=== PATIENT | female | born 1970 | race Caucasian/White ===

== ENCOUNTER 2019-04-23 14:18 | Inpatient (IN) | payer MEDICAID ==
[~2019-04-23] VITALS: Ht 165.1 cm; Wt 108.9 kg
[2019-04-23 14:25] VITALS: BP 127/64
--- NOTE | 2019-04-23 14:40 | NUR ---
PT TAKEN TO BED 10.
--- NOTE | 2019-04-23 15:05 | NUR ---
49 Y/O F COMPLAINS OF ABDOMINAL PAIN, BLOOD IN THE STOOL SINCE 04/12/19. DENIES ANY FEVER, VOMITING. PATIENT STATES SHE HAS NAUSEA AND OCCASTIONAL DIZZINESS. SHE IS UNABLE TO SLEEP BECAUSE OF THE PAIN OR EAT, IT AKES THE PAIN WORSE. ALLERGIES TO PENECILLIN AND IBPROFEN.
--- NOTE | 2019-04-23 15:20 | NUR ---
Patient transferred to bed 9 for further care. RN re-evaluating patient at bedside.
--- NOTE | 2019-04-23 15:24 | NUR ---
Dr. Gordon is evaluating the patient at bedside.
[2019-04-23] MEDS ORDERED: NACL 0.9% 1,000 ML IV SCH (15:38)
[2019-04-23] MEDS ORDERED: MORPHINE SULFATE 4 MG/ML SYR IVP ONE ×2 (15:40→17:55)
[2019-04-23] MEDS ORDERED: ONDANSETRON 4 MG/2 ML VIAL IVP ONE (15:40)
[2019-04-23 17:01] LABS: BASOPHILS % (AUTO) 0.4 % (0.0-2.0); EOSINOPHILS # (AUTO) 0.2 K/uL (0-0.4); EOSINOPHILS % (AUTO) 2.1 % (0.0-4.0); HEMATOCRIT 34.3 % (36-48); LYMPHOCYTES # (AUTO) 2.3 K/uL (2.5-16.5); LYMPHOCYTES % (AUTO) 22.6 % (20.5-51.1); MEAN CORPUSCULAR HEMOGLOBIN 26 pg (27-31); MEAN CORPUSCULAR HGB CONC 32 g/dL (33-37); MEAN CORPUSCULAR VOLUME 79.9 fL (80-94); MONOCYTES # (AUTO) 0.7 K/uL (0.8-1.0); MONOCYTES % (AUTO) 7.1 % (1.7-9.3); NEUTROPHILS # (AUTO) 6.8 K/uL (1.8-7.7); NEUTROPHILS % (AUTO) 67.8 % (42.2-75.2); PLATELET COUNT (AUTO) 212 K/uL (140-450); RED BLOOD CELL COUNT(AUTO) 4.29 MIL/uL (4.20-5.40); RED CELL DISTRIBUTION WIDTH 13.9 % (11.6-13.7)
[2019-04-23 17:24] LABS: BILIRUBIN,URINE NEGATIVE (NEGATIVE); BLOOD, URINE NEGATIVE (NEGATIVE); COLOR,URINE YELLOW (YELLOW); LEUKOCYTE ESTERASE ,URINE TRACE (NEGATIVE); NITRITE, URINE NEGATIVE (NEGATIVE); PH,URINE 5.5 (5.0-9.0); UGLUCOSE NEGATIVE (NEGATIVE)
[2019-04-23 17:28] LABS: APPEARANCE,URINE HAZY (CLEAR)
[2019-04-23 17:28] LABS: ALBUMIN 3.2 g/dL (3.4-5.0); ANION GAP 11.8 (8-16); CARBON DIOXIDE 26.8 mmol/L (21-32); CREATININE 0.6 mg/dL (0.6-1.3); POTASSIUM 3.6 mmol/L (3.5-5.1); TOTAL BILIRUBIN 0.2 mg/dL (0.0-1.0)
[2019-04-23 17:30] LABS: PROTHROMBIN TIME 9.7 secs (10.8-13.4)
[2019-04-23 17:50] LABS: RBC,URINE NONE SEEN /HPF (0-5); WBC,URINE 0-5 /HPF (0-5)
--- NOTE | 2019-04-23 18:30 | NUR ---
PT TO CT AT THIS TIME
[2019-04-23] MEDS ORDERED: diphenhydrAMINE 50 MG/ML VIAL IVP ONE (19:25)
--- NOTE | 2019-04-23 19:38 | NUR ---
PT.'S PAIN LEVEL IS A 7/[address] PICHARDO. WILL CONTINUE TO MONITOR.
--- NOTE | 2019-04-23 19:47 | NUR ---
DR. PICHARDO AT BEDSIDE AT THIS TIME.
[2019-04-23] MEDS ORDERED: DOCUSATE SODIUM 100 MG GELCAP PO PRN (19:55)
[2019-04-23] MEDS ORDERED: ACETAMINOPHEN 325 MG TAB PO PRN (19:55)
--- NOTE | 2019-04-23 19:59 | NUR ---
XRAY AT BEDSIDE
[2019-04-23 20:10] VITALS: BP 115/59
--- NOTE | 2019-04-23 20:10 | NUR ---
RECEIVED PT FROM ED VIA HabeasBHAVYA. A A O X 4, AMBULATORY STEADY GAIT. WITH IV ON THE LEFT HAND G 22; PATENT AND INTACT, SALINE LOCK. HISTORY AND PHYSICAL; DONE BY DR. MICHEL AT BEDSIDE. PT INFORMED THAT SHE IS FOR POSSIBLE COLONOSCOPY. WILL HAVE A GI CONSULT. NURSE ASSISTED MRSA SWAB TAKEN. SKIN INTACT; WITH DISTENDED ABDOMEN; TENDER. PLACED IN LOW BED.
--- NOTE | 2019-04-23 20:14 | NUR ---
Pt report given to Jane LOVING. Transfer of care at this time.
--- NOTE | 2019-04-23 20:14 | NUR ---
Patient will be admitted to care of DR JOHNSON. Admited to [facility]. Will go to room 111B. Belongings list completed. Report to ZACH LOVING.
[2019-04-23] MEDS: NACL 0.9% 1,000 ML IV SCH (21:18)
[2019-04-23] MEDS: MORPHINE SULFATE 2 MG/ML SYR IVP PRN (21:19)
[2019-04-23] MEDS: ONDANSETRON 4 MG/2 ML VIAL IM/IVP PRN (21:20)
--- NOTE | 2019-04-23 21:22 | NUR ---
HEMOCCCULT BLOOD WAS DONE BY
[2019-04-23] MEDS ORDERED: BOWEL EVACUANT DRINK 4,000 ML PDS PO SCH (22:00)
[2019-04-23 22:18] LABS: PHOSPHORUS 2.3 mg/dL (2.5-4.9); THYROID STIMULATING HORMONE 1.94 uIU/mL (0.34-3.74)
[2019-04-23 23:17] LABS: BARBITURATE, URINE NEG. ng/ml (NEG <=200); BENZODIAZEPINE, URINE NEG. ng/mL (NEG <=200); CANNABINOID, URINE NEG. ng/mL (NEG <=50); COCAINE, URINE NEG. ng/mL (NEG <=300); PHENCYCLIDINE SCREEN,URINE NEG. ng/mL (NEG <=25)
[2019-04-23 23:27] LABS: OPIATE, URINE NEG. ng/mL (NEG <=2000)
[2019-04-23] MEDS ORDERED: SODIUM FERRIC GLUCONATE 125 MG in NACL 0.9% 100 ML IV ONE (23:50)
[2019-04-24] VITALS: BP 111/59
[2019-04-24] MEDS: MORPHINE SULFATE 2 MG/ML SYR IVP PRN ×6 (00:07→21:26)
--- NOTE | 2019-04-24 00:15 | NUR ---
MAGNESIUM [address] MICHEL THAT FERLICCIT COMING FROM PHARMACY TO BE MIZED BY THE PHARMACIST. HE SAID HE WILL ORDER TO GIVE IT IN THE AM.
--- NOTE | 2019-04-24 00:20 | NUR ---
4X MOWEL MOVEMENT SINCE DRINKING GOLYTELY. NOT YET CLEAR. PT STILL TRYING TO FINISH THE GOLYTELY
--- NOTE | 2019-04-24 02:10 | NUR ---
RE: LUIS. THE CHARGE NURSE ( PER ROLL OVER PRESS OPERATOR JUAN) ADVISE TO MIX ONE IF AVAILABLE IN THE [facility]
[2019-04-24] MEDS: ONDANSETRON 4 MG/2 ML VIAL IM/IVP PRN ×3 (02:33→18:14)
--- NOTE | 2019-04-24 03:03 | NUR ---
FERRLECIT NOT AVAILABLE IN THE HOSPITAL; CHARGE NURSE AND PRINTING ENGINEER CHECKED. WILLL FF UP WITH THE DOCTOR AND WILL ENDORSE TO NEXT SHIFT
--- NOTE | 2019-04-24 03:31 | NUR ---
REMINDED DR. MICHEL ON THE IRON (FERRLECIT) FOR IRON AT 29 TO BE ORDERED IN AM SHIFT
--- NOTE | 2019-04-24 04:42 | NUR ---
PT HAD GONE TO BM 7X STILL NOT CLEAR WITH PARTICLES; STILL HAS TO FINISH THE GOLYTELY 500 CC. WNCOURAGED PT. PT ACKNOWLEDGED AND PT SAID SHE IS SO BLOATED WILL STOP AND WILL CONTINUE LATER
--- NOTE | 2019-04-24 05:20 | NUR ---
PT C/O OF ITCHING AND PRURITUS ALL OVER BODY, INFORMED DR. MICHEL. WITH VERBAL ORDERS TO GIVE BENADRYL PO PRN FOR ITCHING/PRURITUS- NO DEFINITE TIME
--- NOTE | 2019-04-24 05:30 | NUR ---
PT HAD 9X BM, CLEAR YELLOW. PT FINISHED THE 4 LITERS OF GOLYTELY
[2019-04-24] MEDS: NACL 0.9% 1,000 ML IV SCH ×3 (05:53→23:03)
--- NOTE | 2019-04-24 06:01 | NUR ---
VERIFIED WITH PT IF THE ITCHINESS IS AN ALLERGY TO THE PAIN MED. PT SAID THAT SHE IS NOT ALLERGIC TO MORPHINE
--- NOTE | 2019-04-24 06:27 | NUR ---
LEFT A MESSAGE PHARMACY DEPT RE: FERLECIT AT 0700AM TO BE MIXED TO BE GIVEN SOON POSSIBLE
--- NOTE | 2019-04-24 06:34 | NUR ---
DR. BARRIOS CALLED UP TO INFORM THAT A COLONOSCOPY IS TO BE SCHEDULED TODAY AY 0[address]DR[address] YANG INFORMED. Addendum: 04/24/19 at 0700 by Jane Rey RN AWARE THAT THE BM IS CLEAR YELLOW, WITH JUST 2 SPECKS OF BROWN PARTICLE SEEN IN THE BM/OUTPUT
--- NOTE | 2019-04-24 06:56 | NUR ---
TALKED TO BRITNEY OF PHARMACY INFORMED HER THAT WE HAVE A 0700AM ORDER OF FERRLECIT. ACKNOWLEDGED BY PHARMACIST
[2019-04-24] MEDS ORDERED: SODIUM FERRIC GLUCONATE 125 MG in NACL 0.9% 100 ML IV SCH (07:00)
--- NOTE | 2019-04-24 07:30 | NUR ---
RECEIVED REPORT FROM ACCOUNTS PAYABLES CLERK NURSE. PT AAOX4, NO C/O PAIN. RESPIRATIONS EVEN AND UNLABORED ON RA. IV ON LT AC 20 GA RUNNING IVF PER ORDER. ABD SOFT, ACTIVE BS. SKIN IS INTACT, WARM TO TOUCH. SAFETY MEASURES IN PLACE, CALL LIGHT WITHIN REACH. REVIEWED POC WITH PT, PT VERBALIZED UNDERSTANDING, WILL NEED REINFORCEMENT.
[2019-04-24] MEDS ORDERED: MIDAZOLAM 2 MG/2 ML VIAL ONE (07:33)
[2019-04-24] MEDS ORDERED: diphenhydrAMINE 50 MG/ML VIAL ONE (07:34)
[2019-04-24] MEDS: SODIUM FERRIC GLUCONATE 125 MG in NACL 0.9% 100 ML IV SCH ×2 (07:42→08:25)
--- NOTE | 2019-04-24 07:45 | NUR ---
PT TAKEN FOR COLONOSCOPY. PT HAS NO SIGNS OF DISTRESS AT THIS TIME.
[2019-04-24] MEDS: fentaNYL 0.05 MG/ML VIAL ONE ×2 (07:50→08:02)
[2019-04-24] MEDS: MIDAZOLAM 2 MG/2 ML VIAL IVP SCH ×2 (08:01→08:30)
[2019-04-24 08:04] LABS: BASOPHILS % (AUTO) 0.5 % (0.0-2.0); EOSINOPHILS # (AUTO) 0.3 K/uL (0-0.4); EOSINOPHILS % (AUTO) 3.1 % (0.0-4.0); HEMOGLOBIN 9.8 g/dL (12.0-16.0); LYMPHOCYTES % (AUTO) 22.9 % (20.5-51.1); MEAN CORPUSCULAR HEMOGLOBIN 26 pg (27-31); MEAN CORPUSCULAR HGB CONC 33 g/dL (33-37); MEAN CORPUSCULAR VOLUME 79.6 fL (80-94); MONOCYTES # (AUTO) 0.6 K/uL (0.8-1.0); MONOCYTES % (AUTO) 7.2 % (1.7-9.3); NEUTROPHILS # (AUTO) 5.7 K/uL (1.8-7.7); NEUTROPHILS % (AUTO) 66.3 % (42.2-75.2); PLATELET COUNT (AUTO) 195 K/uL (140-450); RED BLOOD CELL COUNT(AUTO) 3.76 MIL/uL (4.20-5.40); RED CELL DISTRIBUTION WIDTH 13.7 % (11.6-13.7); WHITE BLOOD COUNT (AUTO) 8.7 K/uL (4.8-10.8)
[2019-04-24 08:14] LABS: ANION GAP 12.3 (8-16); CARBON DIOXIDE 27.6 mmol/L (21-32); CREATININE 0.7 mg/dL (0.6-1.3); POTASSIUM 3.9 mmol/L (3.5-5.1)
[2019-04-24] MEDS ORDERED: fentaNYL 0.1 MG/HR PATCH TD SCH (08:15)
[2019-04-24 08:26] LABS: MAGNESIUM 1.9 mg/dL (1.8-2.4); PHOSPHORUS 2.7 mg/dL (2.5-4.9)
[2019-04-24 08:30] VITALS: BP 95/41
--- NOTE | 2019-04-24 08:30 | NUR ---
PT RETURNED FROM PROCEDURE. BLOOD PRESSURE IS DECREASED 95/41, HR 61. PT HAS NO S/S OF HYPOTENSION. PT IS AWARE TO NOTIFY NURSE WHEN GETTING UP TO GO TO RESTROOM. NOTIFIED DR. VELAZQUEZ REGARDING PT'S LOW BP, NO NEW ORDERS RECEIVED, WILL CONTINUE TO MONITOR.
--- NOTE | 2019-04-24 08:32 | NUR ---
PATIENT HAS BEEN SCREENED AND CATEGORIZED HIGH NUTRITION RISK. PATIENT WILL BE SEEN WITHIN 1-2 DAYS OF ADMISSION. 04/24/19-04/25/[address]
[2019-04-24 09:06] LABS: CHOL/HDL RATIO 5.9 (1-4.5)
[2019-04-24] MEDS ORDERED: fentaNYL 0.05 MG/ML VIAL IVP ONE (09:45)
[2019-04-24] MEDS ORDERED: fentaNYL 0.05 MG/ML VIAL IVP SCH (10:00)
--- NOTE | 2019-04-24 10:00 | NUR ---
ADMINISTERED MORPHINE FOR LEVEL 8/10 BACK PAIN, WILL REASSESS WITHIN 1 HOUR.
[2019-04-24] MEDS: HYDROcodone/APAP 7.5/325 MG 1 TAB PO PRN ×3 (11:42→23:20)
--- NOTE | 2019-04-24 11:42 | NUR ---
ADMINISTERED NORCO FOR LEVEL 6/10 ABDOMINAL PAIN. WILL REASSESS WITHIN 1 HOUR.
--- NOTE | 2019-04-24 12:45 | NUR ---
STARTED IV TO LT HAND 22 GA, FLUSHING WITH NO RESISTANCE, CONTINUED IVF PER ORDER.
--- NOTE | 2019-04-24 12:49 | NUR ---
04/24/19 RD INITIAL ASSESSMENT COMPLETED PLEASE REFER TO NUTRITION ASSESSMENT UNDER CARE ACTIVITY FOR ESTIMATED NUTRITIONAL NEEDS. 1. CONTINUE CLEAR LIQUID DIET TOLERATED 2. RECOMMEND ENSURE CLEAR TID 3. CONSIDER ADVANCING DIET TO FULL LIQUIDS AND THEN REGULAR WHEN MEDICALLY STABLE 4. PROVIDED NUTRITION EDUCATION FOR MALNUTRITION/INCREASING CALORIE INTAKE 5. RD TO FOLLOW-UP 2-3 DAYS, HIGH RISK ABDIRAHMAN CAMPBELL, RD
[2019-04-24] MEDS ORDERED: MORPHINE SULFATE 2 MG/ML SYR IVP SCH (13:05)
--- NOTE | 2019-04-24 14:16 | NUR ---
DC PLANNING 49 YRS OLD FEMALE ADMITTED FROM HOME WITH A DX OF RECTAL BLEEDING . ALERT AND ORIENTED X 4 , LIVES AT HOME WITH FAMILY ,PERFORM ADL'S INDEPENDENTLY. PT HAS A HX OF COLON CA. CT ABD/PELVIS ORDERED GI CONSULT ,COLONOSCOPY ORDERED BY DR DRAPER. DC PLAN TO GO HOME WHEN STABLE.CM TO FOLLOW
--- NOTE | 2019-04-24 15:07 | NUR ---
PER NANCY THOMPSON TO GIVE MORPHINE AT THIS TIME FOR LEVEL 8/10 ABDOMINAL PAIN, WILL REASSESS WITHIN 1 HOUR.
[2019-04-24 16:00] VITALS: BP 113/58
--- NOTE | 2019-04-24 16:09 | NUR ---
Manager Disaster Recovery Assessment/Discharge Plan: Name: Felipe Dc Home Relationship: son Pre-Admission Living Arrangements: Lives with Other Other: three sons, including Felipe Prior ADL Independent Current Home Health Name/Tel: N/A Current DME/02 Name/Tel: no home O2 Current Hospice Name/Tel: N/A Current Dialysis Name/Tel: N/A Healthcare Decision Maker: Patient Advance Directive No Information Taught: Advance Directive Person Taught: Children Patient Teaching Tools: Computer Generated Print Verbal Factors Affecting Learning: None Participation Level: Active Evaluation: Gestures Understanding Verbalizes Understanding Educator: KAE Shaver Discipline: Case Mgt/Social Svcs Tentative Discharge Plan Summary: Patient is a 49 year old female with family history of colon cancer admitted for rectal bleed. I met with patient and patient's son Felipe Dc at bedside. Patient alert and oriented x4. Patient speaks Vietnamese. Felipe speaks Luxembourgish and Vietnamese. Patient lives at home with her three sons, including Felipe and plans to return home upon discharge. Patient does not have a pcp at this time. I emphasized to patient the importance of following up with a physician post discharge and regularly. She verbalized understanding. I provided patient with a list of low cost clincs. Patient is independent with ADLs and does not use any DME at home. Patient does not have an existing Advance Directive. I provided patient and Felipe with education on Advance Directive and provided patient with a blank form. Patient denied hx of mental health. She also denied alcohol/substance abuse. Patient has had good communication with attending MD, resident MD, and nursing staff. She does not have any questions/concerns at this time. Manager Disaster Recovery and/or Instrumentation Engineer will follow up as needed. Signature: KAE Shaver Date: Apr 24, 2019
--- NOTE | 2019-04-24 17:28 | NUR ---
NOTIFIED CT DEPARTMENT THAT CONSENT WAS OBTAINED FROM PATIENT AND IV ON RT FA 20 GA WAS STARTED. WILL CONTINUE TO FOLLOW-UP.
[2019-04-24] MEDS ORDERED: APAP/BUTAL/CAFF 325/50/40 MG 1 TAB PO PRN (17:50)
--- NOTE | 2019-04-24 18:14 | NUR ---
ARABELLA FROM CT AT BEDSIDE GIVING INSTRUCTIONS TO PT AND SON REGARDING PO CONTRAST AND TO AMBULATE TO INCREASE EFFECTIVITY. PT AND SON VERBALIZED UNDERSTANDING.
--- NOTE | 2019-04-24 18:45 | NUR ---
PT AMBULATING IN HALLWAY WITH STEADY GAIT. PT HAS NO S/S OF DISTRESS AT THIS TIME.
--- NOTE | 2019-04-24 19:25 | NUR ---
ENDORSED PT TO PUBLIC HEALTH PROGRAM MANAGER NURSE KULWANT. PT HAS NO SIGNS OF DISTRESS AT THIS TIME.
--- NOTE | 2019-04-24 19:26 | NUR ---
RECEIVED BEDSIDE REPORT FROM AM SHIFT NURSE. PT IS LYING IN BED AWAKE AND ALERT WITH FAMILY AT BEDSIDE. NO SOB OR DISTRESS NOTED. IV ACCESS NOTED ON RIGHT FA 20 GAUGE AND LEFT HAND [address] SCAN CONTRAST AT THIS TIME. PATENT AND INFUSING WELL. BOARD UPDATED. INITIAL ASSESSMENT DONE. CALL LIGHT WITHIN PATIENT REACH.
--- NOTE | 2019-04-24 22:25 | NUR ---
CT/RADIOLOGY CAME TO GET GET PATIENT AT THIS TIME FOR CT SCAN WITH CONTRAST. NO SOB OR DISTRESS NOTED.
--- NOTE | 2019-04-24 22:40 | NUR ---
PATIENT AND FAMILY SEEN BY DR. ALCAZAR AT THIS TIME.
--- NOTE | 2019-04-24 22:45 | NUR ---
PT RETURN BACK TO UNIT VIA WHEELCHAIR AT THIS TIME FROM CT SCAN WITH CONTRAST. NO DISTRESS NOTED.
[2019-04-24] MEDS ORDERED: LORazepam 1 MG TAB PO SCH (23:30)
--- NOTE | 2019-04-25 | NUR ---
VITALS TAKEN AT THIS TIME. NO DISTRESS NOTED. WILL CONTINUE TO MONITOR PATIENT.
[2019-04-25 00:05] VITALS: BP 108/75
--- NOTE | 2019-04-25 02:30 | NUR ---
ROUNDS DONE. PT RESTING WITH EYES CLOSED. VISIBLE CHEST RISE AND FALL NOTED. WILL CONTINUE TO MONITOR PT.
[2019-04-25] MEDS: HYDROcodone/APAP 7.5/325 MG 1 TAB PO PRN ×2 (05:55→09:06)
[2019-04-25] MEDS: ONDANSETRON 4 MG/2 ML VIAL IM/IVP PRN (05:57)
--- NOTE | 2019-04-25 05:57 | NUR ---
PRN ZOFRAN GIVEN FOR NAUSEA AT THIS TIME.
[2019-04-25] MEDS: MORPHINE SULFATE 2 MG/ML SYR IVP PRN (06:16)
[2019-04-25 06:18] LABS: BASOPHILS % (AUTO) 0.5 % (0.0-2.0); EOSINOPHILS # (AUTO) 0.2 K/uL (0-0.4); EOSINOPHILS % (AUTO) 3.3 % (0.0-4.0); HEMATOCRIT 26.8 % (36-48); HEMOGLOBIN 8.7 g/dL (12.0-16.0); LYMPHOCYTES # (AUTO) 1.5 K/uL (2.5-16.5); LYMPHOCYTES % (AUTO) 21.1 % (20.5-51.1); MEAN CORPUSCULAR HEMOGLOBIN 26 pg (27-31); MEAN CORPUSCULAR HGB CONC 32 g/dL (33-37); MEAN CORPUSCULAR VOLUME 80.2 fL (80-94); MONOCYTES # (AUTO) 0.5 K/uL (0.8-1.0); MONOCYTES % (AUTO) 6.9 % (1.7-9.3); NEUTROPHILS # (AUTO) 4.9 K/uL (1.8-7.7); NEUTROPHILS % (AUTO) 68.2 % (42.2-75.2); PLATELET COUNT (AUTO) 167 K/uL (140-450); RED BLOOD CELL COUNT(AUTO) 3.34 MIL/uL (4.20-5.40); RED CELL DISTRIBUTION WIDTH 13.4 % (11.6-13.7); WHITE BLOOD COUNT (AUTO) 7.1 K/uL (4.8-10.8)
[2019-04-25 06:34] LABS: MAGNESIUM 1.9 mg/dL (1.8-2.4); PHOSPHORUS 3.2 mg/dL (2.5-4.9)
[2019-04-25 06:47] LABS: ANION GAP 11.8 (8-16); CARBON DIOXIDE 25.9 mmol/L (21-32); CREATININE 0.6 mg/dL (0.6-1.3); POTASSIUM 3.7 mmol/L (3.5-5.1)
--- NOTE | 2019-04-25 06:57 | NUR ---
PT IN STABLE CONDITION. CALL LIGHT WITHIN PATIENT REACH. WILL ENDORSE TO AM SHIFT NURSE FOR CONTINUITY OF CARE.
--- NOTE | 2019-04-25 07:05 | NUR ---
RECEIVED REPORT FROM NIGHT RN. PATIENT IS FULL CODE, ALLERGIES TO IBUPROFEN AND PENICILLIN. PATIENT IS AAOX4, AMBULATORY, ROOM AIR. PT HAS AN IV TO L AC 20G WITH NS INFUSING AT 100ML/HR. CURRENTLY AWAKE AND IN BED, NO COMPLAINTS. SKIN IS INTACT. HAS PLACED DISCHARGE ORDER FOR TODAY, WILL F/U
[2019-04-25 08:00] VITALS: BP 128/59
[2019-04-25 08:10] LABS: FOLIC ACID 5.8 ng/mL (>3.0)
--- NOTE | 2019-04-25 08:30 | NUR ---
REMOVED PATIENTS IV LINE D/T INFILTRATION, CANNULA INTACT
[2019-04-25] MEDS ORDERED: ASCORBIC ACID 500 MG TAB PO SCH (09:00)
[2019-04-25] MEDS ORDERED: FERROUS GLUCONATE 324 MG TAB PO SCH ×2 (09:00)
--- NOTE | 2019-04-25 09:10 | NUR ---
ADMINISTERED MORNING MEDICATION AND NORCO FOR PAIN. PATIENT STATED TO FEELING ANXIOUS OVER DIAGNOSIS AND WANTED SOMETHING FOR ANXIETY. INFORMED DR MALDONADO AND WAS TOLD HE WOULD PUT IN AN ORDER FOR ANXIETY MEDICATION AND HE WOULD BE COMING TO SPEAK TO PATIENT.
--- NOTE | 2019-04-25 10:56 | NUR ---
GAVE PATIENT ONE TIME DOSE OF LEXAPRO FOR ANXIETY AND NORCO 10/325 FOR PAIN.
[2019-04-25] MEDS: HYDROcodone/APAP 10/325 MG 1 TAB TAB PO PRN ×2 (10:57→14:51)
[2019-04-25] MEDS ORDERED: FAMOTIDINE 20 MG TAB PO SCH ×2 (11:00→21:00)
[2019-04-25] MEDS ORDERED: ESCITALOPRAM 20 MG TAB PO SCH (11:00)
[2019-04-25] MEDS ORDERED: ESCI20TA47 PO (11:50)
[2019-04-25] MEDS ORDERED: VITC500 PO (11:50)
[2019-04-25] MEDS ORDERED: NORC10 PO (11:50)
[2019-04-25] MEDS ORDERED: FERR324T11 PO (11:50)
[2019-04-25] MEDS ORDERED: FAMO20TA13 PO (11:50)
--- NOTE | 2019-04-25 12:59 | NUR ---
PATIENT C/O OF FEELING ANXIOUS AND SOB. PLACED HER ON NASAL CANNULA 2L. VITAL SIGNS BP 111/56, O2 94%
[2019-04-25] MEDS ORDERED: DOCU-299 PO (13:01)
[2019-04-25] MEDS ORDERED: FIO PO (13:40)
--- NOTE | 2019-04-25 14:57 | NUR ---
ADMINISTERED MEDICATION FOR PAIN. WILL RE ASSESS.
[2019-04-25 15:14] LABS: ALBUMIN 2.8 g/dL (3.4-5.0); CARBON DIOXIDE 28.7 mmol/L (21-32); CREATININE 0.6 mg/dL (0.6-1.3); POTASSIUM 3.7 mmol/L (3.5-5.1); TOTAL BILIRUBIN 0.2 mg/dL (0.0-1.0)
--- NOTE | 2019-04-25 16:10 | NUR ---
PATIENT HAS BEEN DISCHARGED OFF THE UNIT TO HOME WITH FAMILY. NO IV LINE IN AT TIME OF DISCHARGE. PAPERWORK SIGNED AND GIVEN TO PATIENT. RX PRESCRIPTIONS GIVEN TO PATIENTS FAMILY MEMBER. ALL BELONGINGS SENT HOME WITH PATIENT.
[2019-04-26] MEDS ORDERED: ESCITALOPRAM 20 MG TAB PO SCH (09:00)
== END 2019-04-25 16:11 | disposition home or self-care (01) | DRG 253 ==
LOC: MED 14:18 → MTU 19:55
PROVIDERS: ADMIT General Practice; ATTEND General Practice
PROC: 0DBN8ZX Excision of Sigmoid Colon, Via Natural or Artificial Opening Endoscopic, Diagnostic (ICD-10-PCS; 2019-04-24)
PROC: 0DBP8ZX Excision of Rectum, Via Natural or Artificial Opening Endoscopic, Diagnostic (ICD-10-PCS; 2019-04-24)
PROC: 0DBM8ZX Excision of Descending Colon, Via Natural or Artificial Opening Endoscopic, Diagnostic (ICD-10-PCS; principal; 2019-04-24 08:00)
PROC: 0DBL8ZX Excision of Transverse Colon, Via Natural or Artificial Opening Endoscopic, Diagnostic (ICD-10-PCS; 2019-04-24 08:00)
DX: K92.2 Gastrointestinal hemorrhage, unspecified (principal); C18.9 Malignant neoplasm of colon, unspecified; E44.0 Moderate protein-calorie malnutrition; K76.0 Fatty (change of) liver, not elsewhere classified; E66.01 Morbid (severe) obesity due to excess calories; D63.8 Anemia in other chronic diseases classified elsewhere; D64.9 Anemia, unspecified; N83.202 Unspecified ovarian cyst, left side; K42.9 Umbilical hernia without obstruction or gangrene; N83.201 Unspecified ovarian cyst, right side; Z68.39 Body mass index [BMI] 39.0-39.9, adult; Z80.0 Family history of malignant neoplasm of digestive organs; Z80.3 Family history of malignant neoplasm of breast; Z88.0 Allergy status to penicillin; Z88.8 Allergy status to other drugs, medicaments and biological substances; Z90.49 Acquired absence of other specified parts of digestive tract
CPT/HCPCS: 36415; 45381; 71045; 76770; 76856; 80048; 80053; 80305; 81001; 82378; 82607; 82746; 83036; 83540; 83735; 84100; 84443; 84484; 85025; 85045; 85610; 85730; 86886; 86900; 86901; 87081; 87086; 88305; 93005; 96361; 96374; 96375; 96376; 99285; J1200; J2250; J2270; J2405; J2916; J3010; J7030; Q0092; Q0163; Q9967

== ENCOUNTER 2019-05-14 06:35 | Inpatient (IN) | payer MEDICAID ==
[2019-05-13 12:00] LABS: BASOPHILS % (AUTO) 0.6 % (0.0-2.0); EOSINOPHILS # (AUTO) 0.2 K/uL (0-0.4); HEMATOCRIT 36.4 % (36-48); HEMOGLOBIN 11.3 g/dL (12.0-16.0); LYMPHOCYTES # (AUTO) 1.8 K/uL (2.5-16.5); LYMPHOCYTES % (AUTO) 23.8 % (20.5-51.1); MEAN CORPUSCULAR HEMOGLOBIN 25 pg (27-31); MEAN CORPUSCULAR HGB CONC 31 g/dL (33-37); MEAN CORPUSCULAR VOLUME 81.8 fL (80-94); MONOCYTES # (AUTO) 0.5 K/uL (0.8-1.0); MONOCYTES % (AUTO) 7.1 % (1.7-9.3); NEUTROPHILS % (AUTO) 65.5 % (42.2-75.2); PLATELET COUNT (AUTO) 242 K/uL (140-450); RED BLOOD CELL COUNT(AUTO) 4.45 MIL/uL (4.20-5.40); RED CELL DISTRIBUTION WIDTH 15.1 % (11.6-13.7); WHITE BLOOD COUNT (AUTO) 7.6 K/uL (4.8-10.8)
[2019-05-13 12:46] LABS: ALBUMIN 3.6 g/dL (3.4-5.0); ANION GAP 11.8 (8-16); CARBON DIOXIDE 29.7 mmol/L (21-32); CREATININE 0.7 mg/dL (0.6-1.3); POTASSIUM 4.5 mmol/L (3.5-5.1); TOTAL BILIRUBIN 0.4 mg/dL (0.0-1.0)
[~2019-05-14] VITALS: Ht 165.1 cm; Wt 104.3 kg
[~2019-05-14 06:35] MED LIST: DOCU-299 PO; ESCI20TA47 PO; FAMO20TA13 PO; FERR324T11 PO; FIO PO; NORC10 PO; VITC500 PO
[2019-05-14] MEDS ORDERED: GABAPENTIN 300 MG CAP PO ONE (07:00)
[2019-05-14] MEDS ORDERED: IBUPROFEN 400 MG TAB PO ONE (07:00)
[2019-05-14] MEDS ORDERED: ACETAMINOPHEN EXTRA STRENGTH 500 MG TAB PO ONE (07:00)
[2019-05-14] MEDS ORDERED: metroNIDAZOLE 500 MG/NS PREMIX 100 ML IV ONE (07:30)
[2019-05-14] MEDS ORDERED: DEXAMETHASONE 4 MG/ML VIAL ONE (07:40)
[2019-05-14] MEDS ORDERED: SUCCINYLCHOLINE CHLORIDE 200 MG/10 ML VIAL IVP ONE (07:40)
[2019-05-14] MEDS ORDERED: SEVOFLURANE 250 ML BTL INH ONE (07:40)
[2019-05-14] MEDS ORDERED: PROPOFOL 200 MG/20 ML VIAL IV ONE (07:40)
[2019-05-14] MEDS ORDERED: ONDANSETRON 4 MG/2 ML VIAL ONE (07:40)
[2019-05-14] MEDS ORDERED: ROCURONIUM 50 MG/5 ML VIAL IV ONE (07:40)
[2019-05-14] MEDS ORDERED: MIDAZOLAM 2 MG/2 ML VIAL ONE (07:53)
[2019-05-14] MEDS ORDERED: fentaNYL 0.05 MG/ML VIAL ONE (07:53)
[2019-05-14] MEDS ORDERED: MEPERIDINE 50 MG/ML SYR ONE (07:54)
[2019-05-14] MEDS ORDERED: LIDOCAINE 1% 500 MG/50 ML VIAL ONE (08:00)
[2019-05-14] MEDS ORDERED: BUPIVACAINE-MPF/EPI 0.25% 30 ML VIAL INJ ONE (08:00)
[2019-05-14] MEDS ORDERED: BUPIVACAINE-MPF 0.25% 30 ML VIAL INJ ONE (08:01)
[2019-05-14] MEDS ORDERED: LIDOCAINE/EPI MPF 1%1:200000 30 ML VIAL INJ ONE (08:01)
[2019-05-14] MEDS ORDERED: HYDROmorphone 1 MG/ML AMP IVP PRN ×2 (09:00→11:35)
[2019-05-14] MEDS ORDERED: diphenhydrAMINE 50 MG/ML VIAL IVP PRN (09:00)
[2019-05-14] MEDS ORDERED: LACTATED RINGERS 1,000 ML IV SCH (09:00)
[2019-05-14] MEDS ORDERED: MEPERIDINE 25 MG/ML SYR IVP PRN (09:10)
[2019-05-14] MEDS ORDERED: ONDANSETRON 4 MG/2 ML VIAL IVP PRN (09:10)
[2019-05-14] MEDS ORDERED: HYDROmorphone PFS 2 MG/ML SYR ONE (11:26)
[2019-05-14] MEDS: HYDROmorphone PFS 2 MG/ML SYR ONE ×2 (11:47→12:06)
[2019-05-14] MEDS ORDERED: PROMETHAZINE 25 MG/ML VIAL IM PRN (11:50)
[2019-05-14 12:30] VITALS: BP 116/60
--- NOTE | 2019-05-14 12:30 | NUR ---
PT ADMITTED FROM OR S/P LAPARASCOPIC HEMICHOLECTOMY. ABDOMINAL SURGICAL WOUND PRESENT OPEN TO AIR, NO DRAINAGE. PT REPORTS PAIN OF 10, WILL MEDICATE. RESPIRATIONS EVEN AND UNLABORED ON ROOM AIR. IV IN PLACE L HAND 20G INFUSING PER ORDER, PATENT ASYMPTOMATIC. AAOX4. BED IN LOW POSITION. SAFETY MEASURES IN PLACE. CALL LIGHT WITHIN REACH. WILL CONTINUE TO MONITOR.
[2019-05-14] MEDS: GABAPENTIN 300 MG CAP PO SCH ×2 (13:33→21:13)
[2019-05-14] MEDS: metroNIDAZOLE 500 MG/NS PREMIX 100 ML IV SCH ×2 (13:33→21:12)
[2019-05-14] MEDS ORDERED: traMADol 50 MG TAB PO PRN (15:30)
--- NOTE | 2019-05-14 15:41 | NUR ---
VITAL SIGNS TAKEN AT THIS TIME. PT IN STABLE CONDITION. REPORTS PAIN OF 10. WILL MEDICATE. SAFETY MEASURES IN PLACE. WILL CONTINUE TO MONITOR.
[2019-05-14 16:00] VITALS: BP 139/73
[2019-05-14] MEDS: ACETAMINOPHEN 325 MG TAB PO SCH ×2 (16:04→21:12)
[2019-05-14] MEDS: HYDROcodone/APAP 5/325 MG 1 TAB TAB PO PRN (16:15)
--- NOTE | 2019-05-14 17:39 | NUR ---
PT IN BED, AWAKE. STILL REPORTS PAIN. PAIN MEDICATION GIVE. WILL REEVALUATE. DAUGHTER AT THE BEDSIDE. WILL CONTINUE TO MONITOR.
--- NOTE | 2019-05-14 19:13 | NUR ---
REPORT GIVEN TO NIGHT NURSE FOR CONTINUITY OF CARE.
--- NOTE | 2019-05-14 19:30 | NUR ---
RECEIVED FROM AM RN IN BED AWAKE AND ALERT. DAUGHTER AT BEDSIDE ATTENDING TO HER. ABLE TO VERBALIZE NEEDS WELL VIA DAUGHTER. CARE PLANS FOR THE NIGHT DISCUSSED WITH THEM AND CALL LIGHT USE RE-ORIENTED WITH THEM. ENCOURAGED TO CALL FOR ANY HELP THEY MAY NEED. INCISION SITES NO BLEEDING NOTED . AFEBRILE.
[2019-05-14 20:00] VITALS: BP 129/69
--- NOTE | 2019-05-14 21:28 | NUR ---
PT. AWAKE AND WITH DAUGHTER AT BEDSIDE. C/O MILD PAIN AT THIS TIME. MEDICATED WITH TRAMADOL REQUESTED. ABLE TO VERBALIZE NEEDS WELL WITH DAUGHTER AND IN TURN INTERPRETED IN WELSH. NO FURTHER COMPLAINTS DONE. NO NOTED ADVERSE REACTIONS TO FLAGYL ADMINISTERED.
[2019-05-14] MEDS ORDERED: ceFAZolin 1,000 MG VIAL ONE (22:35)
[2019-05-14] MEDS ORDERED: HYDROmorphone 1 MG/ML AMP ONE (22:50)
--- NOTE | 2019-05-14 23:03 | NUR ---
PT. DAUGHTER REQUESTED FOR MORE PAIN RELIEVER AND THAT IF WE CAN GIVE SOMETHING FOR PAIN. TRIED TO GIVE NORCO P.O. REFUSED WHEN ABOUT TO BE ADMINISTERED. PT. STATED SHE WANTS MORE IVP PAIN RELIEVER. CALLED Theodora HEBERT AND WITH NEW ORDERS TO ADMINISTER DILAUDID 1 MG Q 2H FOR SEVERE PAIN. MEDICATED ORDERED. PT. NOW TRYING TO RELAX AND GO TO SLEEP. DAUGHTER AT BEDSIDE. CALL LIGHT WITH IN REACH.
[2019-05-15] VITALS: BP 134/70
--- NOTE | 2019-05-15 00:54 | NUR ---
HOLLY. NICOLE RETURNED WITNESSED BY ANOTHER RN.
[2019-05-15 02:21] VITALS: BP 129/65
[2019-05-15] MEDS: HYDROmorphone 1 MG/ML AMP IVP PRN ×8 (02:29→21:00)
[2019-05-15] MEDS: ONDANSETRON 4 MG/2 ML VIAL IVP PRN ×2 (02:35→10:19)
--- NOTE | 2019-05-15 02:39 | NUR ---
PT. MEDICATED WITH DILAUDID 1 MG IVP REQUESTED RT SHE SAID HER PAIN IS 7/10. DAUGHTER AT BEDSIDE WATCHING OVER HER. ABLE TO VERBALIZE NEEDS IN LAO AND SWAZI. CALL LIGHT WITH IN REACH.
[2019-05-15 04:03] VITALS: BP 126/64
[2019-05-15] MEDS: metroNIDAZOLE 500 MG/NS PREMIX 100 ML IV SCH (05:00)
[2019-05-15] MEDS: GABAPENTIN 300 MG CAP PO SCH ×3 (05:02→21:01)
[2019-05-15] MEDS ORDERED: ceFAZolin 1,000 MG VIAL ONE (05:44)
--- NOTE | 2019-05-15 05:45 | NUR ---
ANCEF 2GMS IVP ADMINISTERED ORDERED. PT. ABLE TO USE CALL LIGHT FOR HELP. MEDICATED WITH DILAUDID 1MG IVP Q2H. DAUGHTER AT BEDSIDE.
--- NOTE | 2019-05-15 06:09 | NUR ---
MD. BRAMBILA IN HERE TO SEE PT. NOTED THAT PT. SLEEPS AFTER EACH PAIN RELIEVER ADMINISTERED. IF AWAKE COMPLAINS OF PAIN BUT SLEEPS BACK AGAIN IF NOT YET TIME EXPLAINED. DAUGHTER AGREE.
[2019-05-15 06:51] LABS: BASOPHILS % (AUTO) 0.3 % (0.0-2.0); EOSINOPHILS % (AUTO) 0.5 % (0.0-4.0); HEMATOCRIT 30.9 % (36-48); HEMOGLOBIN 9.9 g/dL (12.0-16.0); LYMPHOCYTES # (AUTO) 1.5 K/uL (2.5-16.5); LYMPHOCYTES % (AUTO) 16.2 % (20.5-51.1); MEAN CORPUSCULAR HEMOGLOBIN 26 pg (27-31); MEAN CORPUSCULAR HGB CONC 32 g/dL (33-37); MEAN CORPUSCULAR VOLUME 82.1 fL (80-94); MONOCYTES # (AUTO) 0.8 K/uL (0.8-1.0); MONOCYTES % (AUTO) 8.6 % (1.7-9.3); NEUTROPHILS # (AUTO) 6.9 K/uL (1.8-7.7); NEUTROPHILS % (AUTO) 74.4 % (42.2-75.2); PLATELET COUNT (AUTO) 204 K/uL (140-450); RED BLOOD CELL COUNT(AUTO) 3.76 MIL/uL (4.20-5.40); RED CELL DISTRIBUTION WIDTH 15.9 % (11.6-13.7); WHITE BLOOD COUNT (AUTO) 9.3 K/uL (4.8-10.8)
[2019-05-15] MEDS: ACETAMINOPHEN 325 MG TAB PO SCH ×4 (07:20→21:01)
--- NOTE | 2019-05-15 07:20 | NUR ---
WILL ENDORSE TO AM RN FOR CONTINUITY OF CARE.
[2019-05-15 07:30] LABS: ANION GAP 12.3 (8-16); CREATININE 0.7 mg/dL (0.6-1.3); POTASSIUM 4.3 mmol/L (3.5-5.1)
[2019-05-15 08:00] VITALS: BP 116/68
--- NOTE | 2019-05-15 08:01 | NUR ---
PATIENT HAS BEEN SCREENED AND CATEGORIZED MODERATE NUTRITION RISK. PATIENT WILL BE SEEN WITHIN 3-5 DAYS OF ADMISSION. 05/17/19 05/19/[address]
[2019-05-15] MEDS: ENOXAPARIN 40 MG/0.4 ML SYR SUBQ SCH (09:11)
--- NOTE | 2019-05-15 09:19 | NUR ---
cleaned and kept dry,ambulated to the bathroom and voided freely. ambulating ronny the room.tolerating well with daughter at bedside
--- NOTE | 2019-05-15 10:59 | NUR ---
BACK TO BED AFTER AMBULATING AND HAS SEVERE INCISIONAL PAIN. AND NAUSEA NO VOMITING. DILAUDID DOSE GIVEN FOR PAIN AND ZOFRAN DOSE FOR NAUSEA. WITH THE SAME IVF ON.
[2019-05-15 12:00] VITALS: BP 124/62
--- NOTE | 2019-05-15 14:18 | NUR ---
PATIENMT HAS RESIDUAL PAIN INCISIONAL PAIN. ENCOURAGED TO COUGH AND DEEP BREATH
[2019-05-15] MEDS: HYDROcodone/APAP 5/325 MG 1 TAB TAB PO PRN (17:25)
--- NOTE | 2019-05-15 17:26 | NUR ---
TYLENOL NOT GIVEN.NORCO GIVEN INSTEAD.WITH INSTRUCTION FROM THE PHYSICIAN TO GIVEN NORCO FISRT BEFORE DIALUDID.
--- NOTE | 2019-05-15 18:35 | NUR ---
NORCO DOSE IS NOT EFFECTIVE. PATIENT IS STILL IN PAIN /. DILAUDID 1 MG IVP GIVEN BREAKTHROUGH PAIN NORCO IS NOT EFFECTIVE. WILL INFORM DR dR BRAMBILA THE SURGEON CALLED TO BE INFORMED PER HIS REQUEST.
--- NOTE | 2019-05-15 18:45 | NUR ---
DR BRAMBILA UNABLE TO CALL ,DR MUNSON CALLED AND MESSAGE LEFT AND AWAITING RESPONSE
--- NOTE | 2019-05-15 18:57 | NUR ---
DR MUNSON CALLED BACK AND INFORMED ABOUT THE ORDER OF DR BRAMBILA THAT THE PATIENT IS NOT RELIEVED WITH NORCO ORDERED BY DR BRAMBILA, WITH ORDERS OKAY TO GIVE DILAUDID DOSE IF NORCO IS NOT EFFECTIVE. PATIENT WITH COMPLAINTS OF ANXIETY AND WITH ORDERS FOR HS NEEDED FOR ANXIETY.
--- NOTE | 2019-05-15 19:10 | NUR ---
RECEIVED PT IN STABLE CONDITION FROM AM NURSE. AWAKE,ALERT AND ORIENTED X4. ON TELE MONITOR. WITH NO DISCOMFORT/PAIN NOTED AT THIS TIME. . ON O22L/NC. FAMILY AT BEDSIDE. ABDOMEN TENDER ,WITH INCISION MID ABDOMEN ABOVE THE UMBILICUS,OPEN TO AIR. NO REDNESS NOR ANY SWELLING NOTED . PLAN OF CARE DISCUSSED AND VERBALIZED UNDERSTANDING. BED ON LOW POSITION, FREQ ROUNDS NEEDED. SIDE RAILS UP X2. CALL LIGHT PLACED WITHIN EASY REACH. ENCOURAGED PT TO USE THE INCENTIVE SPIROMETER. WILL CONTINUE TO MONITOR.
[2019-05-15 20:00] VITALS: BP 117/63
--- NOTE | 2019-05-15 21:00 | NUR ---
NIGHT MEDS GIVEN TO PT. NO N/V NOTED.
[2019-05-15] MEDS: LORazepam 2 MG/ML VIAL IVP PRN (22:32)
--- NOTE | 2019-05-15 22:32 | NUR ---
PT C/O ANXIETY . DAUGHTER AT BEDSIDE. ATIVAN 1 MG IVP GIVEN ORDERED. WILL CONTINUE TO MONITOR.
[2019-05-16 00:14] VITALS: BP 128/64
[2019-05-16] MEDS: HYDROmorphone 1 MG/ML AMP IVP PRN ×6 (00:23→20:09)
--- NOTE | 2019-05-16 00:23 | NUR ---
PT C/O SEVERE POST OPAIN. MEDICATED ORDERED. WILL CONTINUE TO MONITOR.
--- NOTE | 2019-05-16 02:35 | NUR ---
MDE ROUNDS. PT ASLEEP. NO S/S OF ANY DISCOMFORT NOTED. WILL CONTINUE TO MONITOR.
[2019-05-16 03:50] VITALS: BP 132/70
[2019-05-16] MEDS: HYDROcodone/APAP 5/325 MG 1 TAB TAB PO PRN (03:55)
--- NOTE | 2019-05-16 04:00 | NUR ---
PT ASLEEP. VITAL SIGNS TAKEN. STABLE . WILL CONTINUE TO MONITOR.
[2019-05-16] MEDS: GABAPENTIN 300 MG CAP PO SCH ×3 (05:04→20:09)
--- NOTE | 2019-05-16 06:28 | NUR ---
C/O POST OP PAIN 03/14. PT MOANS. . MEDICATED ORDERED FOR SEVERE PAIN. ENCOURAGED TO AMBULATE FOR PT HASN'T PASS ANY GAS YET.
[2019-05-16] MEDS: ACETAMINOPHEN 325 MG TAB PO SCH ×4 (06:51→20:09)
--- NOTE | 2019-05-16 07:30 | NUR ---
ENDORSED PT IN STABLE CONDITION TO AM NURSE.
--- NOTE | 2019-05-16 07:31 | NUR ---
RECEIVED REPORT FROM THE PATENT PROSECUTION ATTORNEY NURSE AT BEDSIDE FOR CONTINUITY OF CARE. PT IS AWAKE AND ORIENTED. MAIN LANGUAGE IS VATICAN CITIZEN BUT SPEAKS AND UNDERSTANDS SOME SPANISH. PT IS S/P LAP R EXTENDED QUINCY COLECTOMY. 4 INCISIONS WITH DERMABOND. POD3. STILL HAVING A LOT OF PAIN. REQUESTING DILAUDID Q2 HRS AND NORCO IN BETWEEN. PT IS AMBULATORY. IV ON L HAND 20G. DAUGHTER AT BEDSIDE. WILL CONTINUE TO MONITOR PT.
[2019-05-16 08:00] VITALS: BP 125/62
[2019-05-16] MEDS: ENOXAPARIN 40 MG/0.4 ML SYR SUBQ SCH (08:31)
--- NOTE | 2019-05-16 08:35 | NUR ---
PT TOOK A WALK WITH DAUGHTER IN THE CHUN WAY, BACK IN BED. PT REQUESTING PAIN MED. ADMINISTERED DILAUDID FOR SEVERE PAIN AND ALSO HER LOVENOX. PT TOLERATED WELL. WILL CONTINUE TO MONITOR PT.
[2019-05-16 09:29] LABS: BASOPHILS % (AUTO) 0.3 % (0.0-2.0); EOSINOPHILS # (AUTO) 0.2 K/uL (0-0.4); EOSINOPHILS % (AUTO) 1.5 % (0.0-4.0); HEMATOCRIT 34.4 % (36-48); HEMOGLOBIN 10.6 g/dL (12.0-16.0); LYMPHOCYTES # (AUTO) 1.7 K/uL (2.5-16.5); LYMPHOCYTES % (AUTO) 13.4 % (20.5-51.1); MEAN CORPUSCULAR HEMOGLOBIN 26 pg (27-31); MEAN CORPUSCULAR HGB CONC 31 g/dL (33-37); MEAN CORPUSCULAR VOLUME 82.4 fL (80-94); MONOCYTES # (AUTO) 1.1 K/uL (0.8-1.0); MONOCYTES % (AUTO) 8.3 % (1.7-9.3); NEUTROPHILS % (AUTO) 76.5 % (42.2-75.2); PLATELET COUNT (AUTO) 256 K/uL (140-450); RED BLOOD CELL COUNT(AUTO) 4.18 MIL/uL (4.20-5.40); RED CELL DISTRIBUTION WIDTH 15.6 % (11.6-13.7)
[2019-05-16 09:59] LABS: ANION GAP 9.6 (8-16); CARBON DIOXIDE 29.8 mmol/L (21-32); CREATININE 0.6 mg/dL (0.6-1.3); POTASSIUM 3.4 mmol/L (3.5-5.1)
[2019-05-16] MEDS: LORazepam 2 MG/ML VIAL IVP PRN ×2 (10:56→21:13)
[2019-05-16 12:00] VITALS: BP 99/61
--- NOTE | 2019-05-16 13:20 | NUR ---
REQUESTED PAIN MED. GAVE DILAUDID. PT TOLERATED WELL.
--- NOTE | 2019-05-16 14:00 | NUR ---
DR BRAMBILA WAS HERE TO ASSESS PT.
--- NOTE | 2019-05-16 14:36 | NUR ---
05/16/19 RD INITIAL ASSESSMENT COMPLETED PLEASE REFER TO NUTRITION ASSESSMENT UNDER CARE ACTIVITY FOR ESTIMATED NUTRITIONAL NEEDS. 1. CONTINUE FULL DIET TOLERATED 2. ADVANCE TO MECHANICAL SOFT LOW FIBER DIET WHEN APPROPRIATE 3. RECOMMEND ENSURE CLEAR BID 4. RD TO FOLLOW-UP 3-5 DAYS, MODERATE RISK GUILHERME GOLD, RD
[2019-05-16] MEDS ORDERED: INFLUENZA VACCINE QUAD 0.5 ML SYR IMVAC PRN (15:50)
[2019-05-16 16:00] VITALS: BP 121/64
[2019-05-16] MEDS ORDERED: POTASSIUM CHLORIDE 10 MEQ TABER PO SCH (16:00)
--- NOTE | 2019-05-16 16:00 | NUR ---
PAGED AND SPOKE TO MD JUNIOR PT'S LOW K LEVEL. GAVE ORDERS TO REPLENISH. GAVE ORDERS FOR OK TO SHOWER, CHANGE ATIVAN ORDERS, AND ORDER FOR FLU VACCINE AT [facility]. ALL ORDERS INPUTTED FOR .
--- NOTE | 2019-05-16 16:30 | NUR ---
ADMINISTERED DILAUDID FOR PAIN REQUESTED. PT TOLERATED WELL. WILL CONTINUE TO MONITOR PT.
--- NOTE | 2019-05-16 18:00 | NUR ---
IV CAME OUT. RESTARTED AN IV ON R HAND 22G SL. 1 ATTEMPT. PT TOLERATED WELL. ENCOURAGED PT TO GO FOR A WALK BEFORE DINNER AND BEFORE BED. PT AND DAUGHTER AGREED.
--- NOTE | 2019-05-16 18:37 | NUR ---
GAVE REPORT TO INDER VERDIN AT [facility]. REQUESTED CD OF IMAGES. DC PAPERWORK PRINTED AND SIGNED. WILL ENDORSE D/C TO GRANT OFFICER.
--- NOTE | 2019-05-16 19:25 | NUR ---
ENDORSED PT TO THE TEAM PSYCHOLOGIST NURSE AT BEDSIDE FOR CONTINUITY OF CARE. PT IS IN STABLE CONDITION. FAMILY AT BEDSIDE. AMBULATED AROUND UNIT EARLIER.
--- NOTE | 2019-05-16 19:30 | NUR ---
RECEIVED REPORT FROM AM SHIFT RN FOR PT'S CONTINUITY OF CARE. PT IS SITTING ON THE BEDSIDE CHAIR, FAMILY MEMBERS IN THE ROOM, ON ROOM AIR, HAS RIGHT HAND 22G SALINE LOCK, DENIES ANY PAIN AT THIS TIME. EXPLAINED TO PT AND FAMILY MEMBERS THE QUALITY HEAD ROUTINE AND SAFETY PRECAUTIONS, THEY VERBALIZED UNDERSTANDING. SAFETY PRECAUTIONS IN PLACE, AND CALL LIGHT IS WITHIN REACH. WILL MONITOR PT THROUGHOUT SHIFT.
--- NOTE | 2019-05-16 20:09 | NUR ---
PT C/O ABD PAIN 03/14. ADMINISTERED SCHEDULED PO AND PRN IV PUSH PAIN MEDICATION ORDERED. PT'S NEEDS MET AT THIS TIME. WILL CONTINUE TO MONITOR PT.
--- NOTE | 2019-05-16 21:13 | NUR ---
PT STATES PAIN ONLY WENT DOWN TO 7/10. PT AND DAUGHTER STATED THAT ATIVAN HELPED OUT WITH ANXIETY AND PAIN. ADMINISTERED PRN IVP ATIVAN ORDERED. WILL CONTINUE TO MONITOR PT.
[2019-05-17] VITALS: BP 108/53
--- NOTE | 2019-05-17 | NUR ---
VS CHECKED AND CHARTED. PT ASLEEP, DENIES ANY PAIN AT THIS TIME UPON WAKING UP. DAUGHTER AT BEDSIDE. WILL CONTINUE TO MONITOR PT.
--- NOTE | 2019-05-17 02:00 | NUR ---
MADE ROUNDS. PT LYING DOWN ASLEEP WITH NO SIGNS OF DISTRESS. WILL CONTINUE TO MONITOR PT.
[2019-05-17] MEDS: HYDROmorphone 1 MG/ML AMP IVP PRN ×6 (02:58→20:46)
--- NOTE | 2019-05-17 03:00 | NUR ---
PT CALLED AND C/O ABD PAIN 02/12. ADMINISTERED PRN IVP PAIN MEDICATION ORDERED. PT TEACHING GIVEN REGARDING USE OF NON-PHARMACOLOGIC TECHNIQUES TO RELIEVE PAIN, AND REINFORCED TEACHING REGARDING PAIN MANAGEMENT UPON DC. PT VERBALIZED UNDERSTANDING.
[2019-05-17] MEDS: GABAPENTIN 300 MG CAP PO SCH ×3 (05:38→20:44)
--- NOTE | 2019-05-17 05:39 | NUR ---
PT C/O ABD PAIN AFTER BM. ADMINISTERED SCHEDULED PO AND PRN IVP PAIN MEDICATION ORDERED.PT TEACHING GIVEN, VERBALIZED UNDERSTANDING. PT'S NEEDS MET. WILL CONTINUE TO MONITOR PT.
[2019-05-17 06:15] LABS: BASOPHILS % (AUTO) 0.2 % (0.0-2.0); EOSINOPHILS # (AUTO) 0.3 K/uL (0-0.4); EOSINOPHILS % (AUTO) 2.7 % (0.0-4.0); HEMATOCRIT 33.4 % (36-48); HEMOGLOBIN 10.4 g/dL (12.0-16.0); LYMPHOCYTES # (AUTO) 1.8 K/uL (2.5-16.5); LYMPHOCYTES % (AUTO) 15.5 % (20.5-51.1); MEAN CORPUSCULAR HEMOGLOBIN 26 pg (27-31); MEAN CORPUSCULAR HGB CONC 31 g/dL (33-37); MEAN CORPUSCULAR VOLUME 82.5 fL (80-94); MONOCYTES # (AUTO) 0.8 K/uL (0.8-1.0); MONOCYTES % (AUTO) 6.9 % (1.7-9.3); NEUTROPHILS # (AUTO) 8.5 K/uL (1.8-7.7); NEUTROPHILS % (AUTO) 74.7 % (42.2-75.2); PLATELET COUNT (AUTO) 247 K/uL (140-450); RED BLOOD CELL COUNT(AUTO) 4.05 MIL/uL (4.20-5.40); RED CELL DISTRIBUTION WIDTH 15.9 % (11.6-13.7); WHITE BLOOD COUNT (AUTO) 11.3 K/uL (4.8-10.8)
[2019-05-17 06:45] LABS: ANION GAP 10.5 (8-16); CARBON DIOXIDE 29.9 mmol/L (21-32); CREATININE 0.6 mg/dL (0.6-1.3); POTASSIUM 4.4 mmol/L (3.5-5.1)
--- NOTE | 2019-05-17 07:15 | NUR ---
RECEIVED BEDSIDE REPORT FROM DRAFTER REFRIGERATION NURSE, PT IS AWAKE AND ALERT, NO S/S OF ACUTE DISTRESS. PT IS ON ROOM AIR, SKIN IS INTACT ASIDE FROM THE 4 ABD INCISIONS S/P LAP HEMICOLECTOMY. DAUGHTER IS AT BEDSIDE. IV SITE ON THE R HAND, 22 G, SALINE LOCKED. CALL LIGHT IS WITHIN REACH. WILL CONTINUE TO MONITOR.
[2019-05-17] MEDS: ACETAMINOPHEN 325 MG TAB PO SCH ×4 (07:19→21:00)
--- NOTE | 2019-05-17 07:20 | NUR ---
ADMINISTERED SCHEDULED PO MEDICATION ORDERED. PT TOLERATED IT WELL. PT DENIES ANY PAIN AT THIS TIME. WILL ENDORSE TO AM SHIFT RN FOR PT'S CONTINUITY OF CARE.
[2019-05-17 08:00] VITALS: BP 106/54
[2019-05-17] MEDS: ENOXAPARIN 40 MG/0.4 ML SYR SUBQ SCH (08:03)
--- NOTE | 2019-05-17 08:11 | NUR ---
AM LOVENOX ADMINISTERED, ALSO GIVEN THE PRN DOSE OF IV DILAUDID, PT WAS C/O 10/10 ABD PAIN. PT TOLERATED WELL.
[2019-05-17] MEDS: LORazepam 2 MG/ML VIAL IVP PRN (10:38)
[2019-05-17] MEDS: ONDANSETRON 4 MG/2 ML VIAL IVP PRN ×2 (10:39→17:18)
--- NOTE | 2019-05-17 13:00 | NUR ---
PT TAKEN OFF UNIT TO THE OR FOR MASTECTOMY Addendum: 05/17/19 at 1308 by Ciara Howard RN CHARTED ON WRONG PATIENT
[2019-05-17] MEDS ORDERED: DIAZEPAM 5 MG TAB PO PRN (13:05)
--- NOTE | 2019-05-17 13:50 | NUR ---
PT IS C/O ABD PAIN 03/14, REQUESTING PAIN MEDICINE. WILL MEDICATE. PT'S FAMILY IS VISITING AT BEDSIDE.
--- NOTE | 2019-05-17 14:51 | NUR ---
PT AMBULATING WITH HER ALONG THE HALLWAY
--- NOTE | 2019-05-17 15:00 | NUR ---
PT TAKING A SHOWER, DAUGHTER IS ASSISTING
[2019-05-17 16:00] VITALS: BP 112/68
[2019-05-17] MEDS: HYDROcodone/APAP 5/325 MG 1 TAB TAB PO PRN ×2 (16:16→23:07)
--- NOTE | 2019-05-17 17:10 | NUR ---
PT C/O SEVERE 10/10 ABD PAIN; STATES THAT THE [facility] DID NOT DO ANYTHING FOR THE PAIN. ADMINISTERED THE PRN IV DILAUDID, AND PRN ZOFRAN FOR NAUSEA. ALSO INSTRUCTED PT TO AMBULATE OFTEN SHE CAN, TO RELIEVE PAIN FROM GAS BUILD-UP. PT VERBALIZED UNDERSTANDING.
--- NOTE | 2019-05-17 19:10 | NUR ---
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
--- NOTE | 2019-05-17 19:20 | NUR ---
RECEIVED BEDSIDE REPORT FROM AM SHIFT RN DAVID, FOR PT'S CONTINUITY OF CARE. PT IS AAO X4, DAUGHTER AT BEDSIDE, PT IS ON ROOM AIR, HAS RIGHT HAND 22G SALINE LOCK, SX INCISION DRY AND INTACT, DENIES ANY PAIN AT THIS TIME. EXPLAINED TO PT AND DAUGHTER THE SURGICAL FIRST ASSISTANT ROUTINE. PT TEACHING GIVEN REGARDING MEDICATIONS DUE, THEY VERBALIZED UNDERSTANDING. SAFETY MEASURES IN PLACE. CALL LIGHT IS WITHIN REACH. WILL MONITOR PT THROUGHOUT SHIFT.
--- NOTE | 2019-05-17 20:46 | NUR ---
PT C/O ABD PAIN 01/12, ADMINISTERED SCHEDULED PO MEDICATION AND PRN IVP PAIN MEDICATION ORDERED. PT TOLERATED IT WELL. PT AND FAMILY MEMBER TEACHING GIVEN ABOUT SIDE EFFECTS AND BENEFITS OF MEDICATIONS. PT AND DAUGHTER VERBALIZED UNDERSTANDING. PT'S NEEDS MET. WILL CONTINUE TO MONITOR PT. Addendum: 05/17/19 at 2111 by Zehra Dyer RN ADDITIONAL INFO: PT REFUSED PO PAIN MEDICATION WHEN OFFERED. MADE PLAN OF CARE ABOUT PAIN MANAGEMENT, TO REPORT PAIN AT MODERATE LEVEL, AND WILL TRY TO USE NON-PHARMACOLOGIC TECHNIQUES WITH PO PAIN MEDICATION ORDERED. PT AND DAUGHTER VERBALIZED UNDERSTANDING.
--- NOTE | 2019-05-17 23:09 | NUR ---
PT REQUESTED FOR SOMETHING TO HELP HER WITH ANXIETY AND SLEEP, AND C/O ABD PAIN AT 7/10. PT TEACHING GIVEN ABOUT PAIN MANAGEMENT, AND PAIN MEDICATION ADMINISTRATION. ENCOURAGED PT TO REPORT PAIN AT MODERATE LEVEL TO BE ABLE TO TARGET IT AT LOWER LEVEL AND GET MEDICATED BEFORE IT INCREASES. PT AGREED TO TAKE PO MEDICATION, AND THEY VERBALIZED UNDERSTANDING. ADMINISTERED PRN PO PAIN MEDICATION ORDERED. WILL CONTINUE TO MONITOR PT.
[2019-05-18] VITALS: BP 111/61
--- NOTE | 2019-05-18 00:30 | NUR ---
PT ASLEEP WITH NO SIGNS OF DISTRESS.
--- NOTE | 2019-05-18 02:23 | NUR ---
PT ASLEEP WITH NO SIGNS OF DISTRESS. WILL CONTINUE TO MONITOR PT.
[2019-05-18] MEDS: ONDANSETRON 4 MG/2 ML VIAL IVP PRN ×4 (03:08→22:35)
--- NOTE | 2019-05-18 03:08 | NUR ---
PT C/O N/V. VOMITED X 1. STATED HAD MODERATE AMOUNT OF DIARRHEA X 1. PT C/O SEVERE ABD PAIN DT VOMITING AND BM. ADMINISTERED PRN IVP ANTI NAUSEA MEDICATION ORDERED. PT REFUSED TO TAKE PO PAIN MEDICATION, REQUESTED FOR IVP PAIN MEDICATION INSTEAD. WILL MEDICATE PT.
[2019-05-18] MEDS: HYDROmorphone 1 MG/ML AMP IVP PRN ×6 (03:27→23:07)
--- NOTE | 2019-05-18 03:27 | NUR ---
ADMINISTERED PRN IVP PAIN MEDICATION ORDERED. PT TEACHING GIVEN, INSTRUCTED PT TO REPORT PAIN AT TOLERABLE LEVEL. PT AND DAUGHTER VERBALIZED UNDERSTANDING. WILL CONTINUE TO MONITOR PT.
--- NOTE | 2019-05-18 05:00 | NUR ---
PT REFUSED SCHEDULED PO MEDICATION. REQUESTED IF SHE COULD TAKE IT IN AN HOUR, PT AFRAID SHE MIGHT THROW IT UP IF TAKEN AT THIS TIME. WILL REASSESS PT AFTER AN HOUR.
[2019-05-18] MEDS: GABAPENTIN 300 MG CAP PO SCH ×3 (06:00→20:18)
--- NOTE | 2019-05-18 06:05 | NUR ---
ADMINISTERED SCHEDULED PO MEDICATION ORDERED. PT TOLERATED IT WITH SIP OF WATER. ASSISTED PT TO THE RESTROOM. PT HAD LOOSE BM. PER PT AND DAUGHTER, THIS IS THE 4TH TIME PT HAVE LOOSE BM. PT C/O PAIN, BUT REFUSES PO MEDICATION DT N/V FEELING. PT TEACHING GIVEN REGARDING MEDICATION SE AND PAIN MANAGEMENT. WILL ENDORSE PT TO AM SHIFT RN FOR PT'S CONTINUITY OF CARE.
--- NOTE | 2019-05-18 06:30 | NUR ---
PT VOMITED AGAIN. CALLED DR. BRAMBILA FOR UPDATE. DR. BRAMBIAL TORB STAT CBC AND BMP. RE: DIARRHEA, NOTED IT IS NORMAL. MD WILL BE COMING IN THE MORNING TO SEE PT. WILL RELAY INFORMATION TO AM SHIFT RN AND THE PT.
--- NOTE | 2019-05-18 07:05 | NUR ---
RECEIVED BEDSIDE REPORT FROM DIGITAL SALES REPRESENTATIVE NURSE. PATIENT IS AWAKE, ALERT AND ORIENTEDX4. CROATIAN SPEAKER. NO SIGNS OF DISTRESS ON RA. SKIN HAS SURGICAL WOUNDS, JUANA. CLEAN AND DRY AND INTACT. PATIENT IS AMBULATORY. IV ON R HAND 22G SL. CLEAN, DRY AND INTACT. ABLE TO MAKE NEEDS KNOWN. BED IN LOW POSITION. CALL LIGHT WITHIN REACH. ABLE TO MAKE NEEDS KNOWN.
--- NOTE | 2019-05-18 07:10 | NUR ---
RECEIVED CALL FROM JONAS (LAB) FOR CRITICAL LAB VALUE. H&H HGB - 6.4; HCT 20.7. ENDORSED TO AM SHIFT INDER GAMEZ. PAGED BILINGUAL COUNTER SALES RETAIL (DR. LINK) FOR REPORT. Addendum: 05/18/19 at 1949 by Zehra Dyer RN WRONG ENTRY/WRONG PT
[2019-05-18] MEDS: ACETAMINOPHEN 325 MG TAB PO SCH ×4 (07:27→20:23)
[2019-05-18 08:00] VITALS: BP 120/76
[2019-05-18] MEDS: ENOXAPARIN 40 MG/0.4 ML SYR SUBQ SCH (08:16)
--- NOTE | 2019-05-18 08:17 | NUR ---
ADMINISTERED PRN PAIN MED AND LETICIA MED. EDUCATED ON SIDE EFFECTS. PATIENT TOLERATED WELL. NO SIGNS OF DISTRESS. BED IN LOW POSITION. CALL LIGHT WITHIN REACH.
[2019-05-18 08:24] LABS: ANION GAP 12.8 (8-16); CARBON DIOXIDE 29.6 mmol/L (21-32); CREATININE 0.8 mg/dL (0.6-1.3); POTASSIUM 4.4 mmol/L (3.5-5.1)
[2019-05-18 08:25] LABS: BASOPHILS % (AUTO) 0.3 % (0.0-2.0); EOSINOPHILS # (AUTO) 0.3 K/uL (0-0.4); EOSINOPHILS % (AUTO) 1.7 % (0.0-4.0); HEMATOCRIT 39.5 % (36-48); HEMOGLOBIN 12.4 g/dL (12.0-16.0); LYMPHOCYTES % (AUTO) 11.5 % (20.5-51.1); MEAN CORPUSCULAR HEMOGLOBIN 26 pg (27-31); MEAN CORPUSCULAR HGB CONC 31 g/dL (33-37); MEAN CORPUSCULAR VOLUME 81.3 fL (80-94); MONOCYTES # (AUTO) 1.1 K/uL (0.8-1.0); MONOCYTES % (AUTO) 6.3 % (1.7-9.3); NEUTROPHILS # (AUTO) 13.9 K/uL (1.8-7.7); NEUTROPHILS % (AUTO) 80.2 % (42.2-75.2); PLATELET COUNT (AUTO) 414 K/uL (140-450); RED BLOOD CELL COUNT(AUTO) 4.86 MIL/uL (4.20-5.40); RED CELL DISTRIBUTION WIDTH 15.8 % (11.6-13.7); WHITE BLOOD COUNT (AUTO) 17.2 K/uL (4.8-10.8)
--- NOTE | 2019-05-18 09:11 | NUR ---
OFFERED PATIENT HEATHER. SHE SAID SHE IS OK RIGHT NOW, SHE SAID LATER. WILL CONTINUE TO MONITOR THE PATIENT.
--- NOTE | 2019-05-18 10:46 | NUR ---
ADMINISTERED PRN PAIN MED AND NAUSEA MED. PATIENT REFUSED PO PAIN MED D/T NAUSEA. EDUCATED ON SIDE EFFECTS. PATIENT TOLERATED WELL. WILL CONTINUE TO MONITOR THE PATIENT
[2019-05-18] MEDS ORDERED: PANTOPRAZOLE 40 MG TABEC PO SCH (11:30)
--- NOTE | 2019-05-18 11:53 | NUR ---
ADMINISTERED MED. PATIENT TOLERATED WELL. EDUCATED ON MED. PATIENT SAID SHE WILL AMBULATE IN ABOUT 10 MINS. WILL CONTINUE TO MONITOR
--- NOTE | 2019-05-18 12:10 | NUR ---
PATIENT AMBULATED AROUND THE HALLS. NO SIGNS OF DISTRESS. PATIENT IS NOW BACK IN THE ROOM WITH HER FAMILY
[2019-05-18] MEDS: DEXT 5% /NACL 0.9% 1,000 ML IV SCH (12:52)
--- NOTE | 2019-05-18 13:01 | NUR ---
ADMINISTERED MEDS. PATIENT TOLERATED WELL. D5NS STARTED AT 50 TO KEEP HER HYDRATED. PATIENT NOT EATING D/T NAUSEA AND VOMITING. LEFT A MESSAGE FOR DR BRAMBILA. PATIENT STATES SHE ATE FISH AND GOT A RASH AND IS ITCHY, RASH IS ON CHEST AND ABDOMEN. WILL AWAIT HIS CALL BACK.
--- NOTE | 2019-05-18 14:11 | NUR ---
ADMINISTERED PRN PAIN MED. EDUCATED ON SIDE EFFECTS. NEW IV INSERTED R FA 22G. PATIENT TOLERATED WELL. WILL CONTINUE TO MONITOR THE PATIENT
[2019-05-18 16:00] VITALS: BP 111/67
--- NOTE | 2019-05-18 17:22 | NUR ---
ADMINISTERED PRN PAIN MED AND PRN NAUSEA MED. PATIENT TOLERATED WELL. EDUCATED ON MEDS. WILL CONTINUE TO MONITOR. DAUGHTER AT BEDSIDE
--- NOTE | 2019-05-18 19:24 | NUR ---
GAVE BEDSIDE REPORT TO TITLE OFFICER NURSE. PATIENT ENDORSED IN STABLE CONDITION
--- NOTE | 2019-05-18 19:25 | NUR ---
RECEIVED BEDSIDE REPORT FROM AM SHIFT RN SAVANNAH, FOR PT'S CONTINUITY OF CARE. PT LYING DOWN EATING DINNER, WITH DAUGHTER AT BEDSIDE. PT IS ON ROOM AIR, HAS RIGHT FA 22G WITH D5 NS AT 50ML/HR, DENIES ANY PAIN, ONLY DISCOMFORT. REMINDED PT TO EAT LITTLE BY LITTLE, AND EAT BLAND, SOFT FOOD TO NOT IRRITATE OR AGGRAVATE STOMACH. PT AND DAUGHTER VERBALIZED UNDERSTANDING, AND IS FOLLOWING THE SAID INSTRUCTIONS. SAFETY MEASURES IN PLACE. CALL LIGHT IS WITHIN REACH. WILL MONITOR PT THROUGHOUT SHIFT.
[2019-05-18] MEDS: HYDROcodone/APAP 5/325 MG 1 TAB TAB PO PRN (20:18)
[2019-05-18] MEDS: PANTOPRAZOLE 40 MG TABEC PO SCH (20:18)
--- NOTE | 2019-05-18 20:23 | NUR ---
PT C/O ABD PAIN 12/12. PT TEACHING GIVEN REGARDING SCHEDULED MEDICATIONS AND THE PO PAIN MEDICATION. THEY VERBALIZED UNDERSTANDING. PT REFUSED PO ACETAMINOPHEN, STATES IT GIVES HER UPSET STOMACH. ADMINISTERED SCHEDULED PO AND PRN PAIN MEDICATION ORDERED. PT TOLERATED THEM WELL. PT AND DAUGHTER STATES THE LAST VOMIT WAS AT 0800, AND NO FEELING OF N/V AT THIS TIME. WILL CONTINUE TO MONITOR PT.
--- NOTE | 2019-05-18 22:35 | NUR ---
PT REPORTED FEELING NAUSEATED. ADMINISTERED IVP ANTI NAUSEA MEDICATION ORDERED. ASSISTED PT TO THE RESTROOM, HAD DIARRHEA PER PT. PT VOMITED MODERATE AMOUNT, LIQUID CONSISTENCY WITH DARK BROTH LIKE COLOR, AFTER LAYING DOWN IN BED. C/O SEVERE ABD PAIN. AFTER VOMITING AND DIARRHEA. WILL MEDICATE PT.
--- NOTE | 2019-05-18 23:07 | NUR ---
ADMINISTERED PRN IVP PAIN MEDICATION ORDERED. CHANGED PT TO DIFFERENT GOWN AND BLANKETS. HYDROMORPHONE IS SUSPECTED TO BE CAUSING N/V AND DIARRHEA, SINCE IT WAS GIVEN AT 2019. POC DISCUSSED WITH PT AND DAUGHTER TO NOT HAVE ANYTHING TO EAT OR DRINK FOR NOW, AND WILL HOLD OFF THE HYDROMORPHONE TO R/O N/V/D. WILL INFORM MD, AND ENDORSE TO AM SHIFT RN REGARDING THE N/V/D REACTION.
[2019-05-19] VITALS: BP 119/67
--- NOTE | 2019-05-19 02:04 | NUR ---
MADE ROUNDS. PT ASLEEP WITH NO SIGNS OF DISTRESS. WILL CONTINUE TO MONITOR PT.
[2019-05-19] MEDS: GABAPENTIN 300 MG CAP PO SCH ×2 (04:40→12:49)
--- NOTE | 2019-05-19 04:40 | NUR ---
ADMINISTERED SCHEDULED PO MEDICATION ORDERED. PT TOLERATED IT WELL. ASSISTED PT TO THE RESTROOM, PT C/O PAIN AND NAUSEA AFTER ACTIVITY. LAB PERSONNEL AT BEDSIDE. WILL MEDICATE PT.
--- NOTE | 2019-05-19 04:45 | NUR ---
ADMINISTERED SCHEDULED IVP PAIN MEDICATION AND IVP ANTI-NAUSEA MEDICATION ORDERED. PT STATES THE INSIDE OF HER STOMACH FEELS ITCHY INTERMITTENTLY APPROX EVERY 2 HRS X 2 DAYS, NOT TOO CONCERNING BUT FEELS STRANGE. WILL ENDORSE TO AM SHIFT RN TO ENDORSE TO MD WHEN MD SEES THE PT. WILL CONTINUE TO MONITOR PT.
[2019-05-19] MEDS: ONDANSETRON 4 MG/2 ML VIAL IVP PRN ×2 (04:46→11:13)
[2019-05-19] MEDS: HYDROmorphone 1 MG/ML AMP IVP PRN ×3 (04:46→14:47)
[2019-05-19 05:38] LABS: BASOPHILS % (AUTO) 0.3 % (0.0-2.0); EOSINOPHILS # (AUTO) 0.2 K/uL (0-0.4); EOSINOPHILS % (AUTO) 2.2 % (0.0-4.0); HEMATOCRIT 34.8 % (36-48); LYMPHOCYTES # (AUTO) 2.1 K/uL (2.5-16.5); LYMPHOCYTES % (AUTO) 19.2 % (20.5-51.1); MEAN CORPUSCULAR HEMOGLOBIN 26 pg (27-31); MEAN CORPUSCULAR HGB CONC 31 g/dL (33-37); MEAN CORPUSCULAR VOLUME 82.2 fL (80-94); MONOCYTES # (AUTO) 0.9 K/uL (0.8-1.0); MONOCYTES % (AUTO) 8.5 % (1.7-9.3); NEUTROPHILS # (AUTO) 7.6 K/uL (1.8-7.7); NEUTROPHILS % (AUTO) 69.8 % (42.2-75.2); PLATELET COUNT (AUTO) 317 K/uL (140-450); RED BLOOD CELL COUNT(AUTO) 4.24 MIL/uL (4.20-5.40); RED CELL DISTRIBUTION WIDTH 15.8 % (11.6-13.7); WHITE BLOOD COUNT (AUTO) 10.9 K/uL (4.8-10.8)
--- NOTE | 2019-05-19 06:30 | NUR ---
PT STATES NO PAIN AT THIS TIME. REFUSED SCHEDULED PO ACETAMINOPHEN. PT'S NEEDS MET. WILL ENDORSE TO AM SHIFT RN FOR PT'S CONTINUITY OF CARE.
[2019-05-19] MEDS: ACETAMINOPHEN 325 MG TAB PO SCH ×2 (06:52→11:12)
--- NOTE | 2019-05-19 07:15 | NUR ---
RECEIVED REPORT FROM STONE TRIMMER NURSE. PATIENT LYING DOWN IN BED SLEEPING, AROUSABLE BY VOICE. NO DISTRESS NOTED. PAIN WITHIN TOLERABLE AT THIS TIME. AAOX4, CALM, COOPERATIVE, SKIN COLOR APPROPRIATE TO ETHNICITY, WARM TO TOUCH. S/P HEMICOLECTOMY. RESPIRATIONS EVEN, UNLABORED, ON ROOM AIR. REVIEWED PLAN OF CARE WITH PATIENT. PATIENT VERBALIZED UNDERSTANDING. SAFETY MEASURES IN PLACE, CALL LIGHT WITHIN REACH. WILL CONTINUE TO MONITOR.
[2019-05-19 07:18] LABS: ANION GAP 15.5 (8-16); CARBON DIOXIDE 26.4 mmol/L (21-32); CREATININE 0.8 mg/dL (0.6-1.3); POTASSIUM 3.9 mmol/L (3.5-5.1)
[2019-05-19 08:00] VITALS: BP 126/64
[2019-05-19] MEDS ORDERED: oxyCODONE/APAP 5/325 MG 1 TAB TAB PO PRN (08:15)
[2019-05-19] MEDS: DEXT 5% /NACL 0.9% 1,000 ML IV SCH (08:35)
[2019-05-19] MEDS: PANTOPRAZOLE 40 MG TABEC PO SCH (09:37)
[2019-05-19] MEDS: ENOXAPARIN 40 MG/0.4 ML SYR SUBQ SCH (09:41)
--- NOTE | 2019-05-19 09:41 | NUR ---
PATIENT EATING BREAKFAST, SITTING AT BEDSIDE CHAIR. SCHEDULED MEDICATIONS DUE GIVEN. WILL CONTINUE TO MONITOR.
--- NOTE | 2019-05-19 11:19 | NUR ---
PATIENT COMPLAINS OF NAUSEA, NO VOMITING. ALSO COMPLAINS OF PAIN. ZOFRAN AND PERCOCET GIVEN AT THIS TIME. WILL CONTINUE TO MONITOR.
[2019-05-19] MEDS: LORazepam 2 MG/ML VIAL IVP PRN (12:50)
--- NOTE | 2019-05-19 12:53 | NUR ---
PATIENT SITTING DOWN IN BED. FAMILY MEMBERS AT BEDSIDE. PATIENT ATE ABOUT 50% LUNCH, TOLERATED WELL. NO VOMITING. PATIENT PAIN UNDER CONTROL WITH PERCOCET. WILL CONTINUE TO MONITOR.
--- NOTE | 2019-05-19 14:52 | NUR ---
PATIENT COMPLAINS OF ABD PAIN, DILAUDID GIVEN AT THIS TIME. WILL CONTINUE TO MONITOR.
[2019-05-19] MEDS ORDERED: ACET-5629 PO (15:00)
[2019-05-19] MEDS ORDERED: GABA300C PO (15:02)
[2019-05-19] MEDS ORDERED: DIAZ5TAB7 PO (15:03)
--- NOTE | 2019-05-19 15:38 | NUR ---
DISCHARGE INSTRUCTIONS GIVEN TO PATIENT IN PREFERRED LANGUAGE OF CHINESE, PATIENT PREFERS DAUGHTER AT BEDSIDE TO TRANSLATE INSTEAD OF USING TRANSLATION PHONE OFFERED TO PATIENT. INSTRUCTIONS ON NEW/CHANGED MEDICATION REGIMEN AND SIDE EFFECTS, WOUND CARE MANAGEMENT, FOLLOW-UP VISIT WITH SURGEON, AND DIET REGIMEN. ANSWERED ALL OF PATIENT/FAMILY'S QUESTIONS REGARDING DISCHARGE. PATIENT/FAMILY VERBALIZED COMPLETE UNDERSTANDING. IV SITE REMOVED WITH MINIMAL BLOOD AND LUMEN COMPLETELY INTACT. PATIENT TO GET DRESSED AND GATHER BELONGINGS. ID BANDS REMOVED. WILL CONTINUE TO MONITOR.
--- NOTE | 2019-05-19 15:40 | NUR ---
PATIENT ALL DRESSED AND ALL BELONGINGS WITH PATIENT. ESCORTED PATIENT DOWN TO LOBBY VIA STEADY AMBULATION. PATIENT DISCHARGED TO HOME AT THIS TIME IN STABLE CONDITION VIA PRIVATE VEHICLE.
== END 2019-05-19 15:40 | disposition home or self-care (01) | DRG 231 ==
LOC: EDUNIT# → MLB 06:35 → MMU 06:38 → MLB 11:44 → MTU 11:44
PROVIDERS: ADMIT Surgery; ATTEND Surgery
PROC: 0DBL4ZZ Excision of Transverse Colon, Percutaneous Endoscopic Approach (ICD-10-PCS; 2019-05-14)
PROC: 0DBF4ZZ Excision of Right Large Intestine, Percutaneous Endoscopic Approach (ICD-10-PCS; principal; 2019-05-14 08:50)
DX: C18.4 Malignant neoplasm of transverse colon (principal); D72.829 Elevated white blood cell count, unspecified; E66.9 Obesity, unspecified; Z68.38 Body mass index [BMI] 38.0-38.9, adult; J98.11 Atelectasis
CPT/HCPCS: 36415; 80048; 80053; 81025; 85025; 86140; 86886; 86900; 86901; 86920; 87081; 88309; 88313; 88342; J0330; J0690; J1100; J1170; J1650; J2001; J2060; J2175; J2250; J2405; J2704; J3010; J3490; J7030; J7040; J7042; J7060; J7120; Q0163

== ENCOUNTER 2019-05-29 13:07 | Inpatient (IN) | payer MEDICAID ==
[~2019-05-29] VITALS: Ht 165.1 cm; Wt 100.7 kg
[~2019-05-29 13:07] MED LIST changes: +ACET-5629 PO; +DIAZ5TAB7 PO; +GABA300C PO; -NORC10 PO
[2019-05-29 13:12] VITALS: BP 129/68
[2019-05-29] MEDS ORDERED: NACL 0.9% 1,000 ML IV ONE (13:42)
[2019-05-29] MEDS ORDERED: NACL 0.9% 1,000 ML IV SCH (13:42)
[2019-05-29] MEDS ORDERED: MORPHINE SULFATE 4 MG/ML SYR IVP ONE ×2 (13:45→16:10)
[2019-05-29] MEDS ORDERED: METOCLOPRAMIDE 10 MG/2 ML INJ VIAL IVP ONE (13:45)
[2019-05-29] MEDS ORDERED: FAMOTIDINE 20 MG/2 ML VIAL IVP ONE (13:45)
[2019-05-29] MEDS ORDERED: PANTOPRAZOLE 40 MG INJ VIAL IVP ONE (13:45)
[2019-05-29] MEDS ORDERED: ONDANSETRON 4 MG/2 ML VIAL IVP ONE (13:45)
--- NOTE | 2019-05-29 13:51 | NUR ---
BODY FORMER AT BEDSIDE
--- NOTE | 2019-05-29 13:52 | NUR ---
BIB SON C/O CONSTANT BILAT UPPER ABDOMINAL PAIN X 2 WEEKS. C/O NAUSEA, DIARRHEA X 4 DAYS & C/O BLURRED VISION X YESTERDAY. LBM LAST NIGHT. HAS HAD 2 OR 3 X BLACK STOOL WITH BRIGHT RED BLOOD IN TOILET BOWEL. STATES FEELS WEAK. DENIES VOMITING AND FEVER. VA: RIGHT EYE 20/50, LEFT EYE 20/20, BOTH EYE 20/40 PMH: COLON CANCER & LAPAROSCOPIC COLECTOMY ON 05/14/19
--- NOTE | 2019-05-29 13:56 | NUR ---
INSTRUMENT LENS GRINDER AT BEDSIDE
--- NOTE | 2019-05-29 14:01 | NUR ---
EMT AT BEDSIDE FOR EKG
[2019-05-29 14:10] LABS: BASOPHILS % (AUTO) 0.4 % (0.0-2.0); EOSINOPHILS # (AUTO) 0.3 K/uL (0-0.4); HEMATOCRIT 33.4 % (36-48); HEMOGLOBIN 10.7 g/dL (12.0-16.0); LYMPHOCYTES % (AUTO) 21.7 % (20.5-51.1); MEAN CORPUSCULAR HEMOGLOBIN 26 pg (27-31); MEAN CORPUSCULAR HGB CONC 32 g/dL (33-37); MEAN CORPUSCULAR VOLUME 79.8 fL (80-94); MONOCYTES # (AUTO) 0.7 K/uL (0.8-1.0); MONOCYTES % (AUTO) 7.8 % (1.7-9.3); NEUTROPHILS # (AUTO) 6.2 K/uL (1.8-7.7); NEUTROPHILS % (AUTO) 67.1 % (42.2-75.2); PLATELET COUNT (AUTO) 258 K/uL (140-450); RED BLOOD CELL COUNT(AUTO) 4.18 MIL/uL (4.20-5.40); RED CELL DISTRIBUTION WIDTH 14.6 % (11.6-13.7); WHITE BLOOD COUNT (AUTO) 9.2 K/uL (4.8-10.8)
[2019-05-29 14:11] LABS: APPEARANCE,URINE CLEAR (CLEAR); BILIRUBIN,URINE NEGATIVE (NEGATIVE); BLOOD, URINE NEGATIVE (NEGATIVE); COLOR,URINE YELLOW (YELLOW); LEUKOCYTE ESTERASE ,URINE 1+ (NEGATIVE); NITRITE, URINE NEGATIVE (NEGATIVE); PH,URINE 6.5 (5.0-9.0); UGLUCOSE NEGATIVE (NEGATIVE)
[2019-05-29 14:23] LABS: RBC,URINE NONE SEEN /HPF (0-5); WBC,URINE 0-5 /HPF (0-5)
[2019-05-29 14:24] LABS: ANION GAP 10.9 (8-16); CARBON DIOXIDE 27.1 mmol/L (21-32); CREATININE 0.9 mg/dL (0.6-1.3); PROTHROMBIN TIME 10.1 secs (10.8-13.4)
[2019-05-29 14:32] LABS: ALBUMIN 3.3 g/dL (3.4-5.0); TOTAL BILIRUBIN 0.2 mg/dL (0.0-1.0)
--- NOTE | 2019-05-29 15:27 | NUR ---
PER [employer], WILL PERFORM ORAL CONTRAST CT AT 6PM OR 7PM TODAY, DR. VELAZCO AWARE. Addendum: 05/29/19 at 1527 by TARIK [employer] HAS EXPLAINED TO PT
[2019-05-29] MEDS ORDERED: PROMETHAZINE 25 MG/ML VIAL IVP ONE (16:10)
--- NOTE | 2019-05-29 18:29 | NUR ---
PT AT CT SCAN NOW.
[2019-05-29] MEDS ORDERED: HYDROcodone/APAP 5/325 MG 1 TAB TAB PO PRN (19:05)
[2019-05-29] MEDS ORDERED: ACETAMINOPHEN 325 MG TAB PO PRN (19:05)
[2019-05-29] MEDS ORDERED: ONDANSETRON 4 MG/2 ML VIAL IM/IVP PRN (19:05)
[2019-05-29] MEDS ORDERED: DOCUSATE SODIUM 100 MG GELCAP PO PRN (19:05)
[2019-05-29] MEDS ORDERED: ZOLPIDEM 5 MG TAB PO PRN (19:05)
--- NOTE | 2019-05-29 19:15 | NUR ---
REPORT TO CHRISTAL LOVING. TRANSFER OF CARE AT THIS TIME.
--- NOTE | 2019-05-29 19:50 | NUR ---
RECEIVED BEDSIDE REPORT FROM LASHA CHAVARRIA RN. PT IS AAOX4. MAURITIAN SPEAKING. ON ROOM AIR RESPIRATIONS ARE EQUAL AND UNLABORED. LUNG SOUNDS ARE CLEAR. PT S/P AKOSUA SHAY WITH 4 SURGICAL INCISION CLOSED HEALING CRUSTED OVER PICTURES TAKEN AKOSUA SHAY ON 05/14. C/C BLACK STOOLS X 3 DAYS AGO AND ABD PAIN. OTHER RITTER SKIN IS INTACT. MRA SWAB OBTAINED. VSS. ORIENTED PT TO ROOM AND STAFF, CALL LIGHT IS WITHIN REACH/ POC DISCUSSED WITH PT. WILL CONTINUE TO MONITOR. Addendum: 05/31/19 at 0040 by Donna Edwards RN S/P HEMICOLECTOMY
--- NOTE | 2019-05-29 19:53 | NUR ---
Patient will be admitted to care of [facility]. Admited to TELEMETRY. Will go to room 121 B. Belongings list completed. Report to DEANN LOVING.
[2019-05-29 20:00] VITALS: BP 119/44
[2019-05-29] MEDS: MORPHINE SULFATE 2 MG/ML SYR IVP PRN (20:15)
[2019-05-29] MEDS ORDERED: DIAZEPAM 5 MG TAB PO PRN (20:50)
[2019-05-29 20:54] LABS: THYROID STIMULATING HORMONE 1.93 uIU/mL (0.34-3.74)
--- NOTE | 2019-05-29 21:00 | NUR ---
IV WAS ACCIDENTLY PULLED OFF PER PT. IV CATH IS INTACT. NEW IV STARTED ON LAC 22G ON FIRST ATTEMPT. PT TOLERATED WELL. IVF PER ORDERS. CALL LIGHT IS WITHIN REACH. WILL CONTINUE TO MONITOR.
--- NOTE | 2019-05-29 21:25 | NUR ---
DR GIBBONS PERFORMED RECTAL EXAM AT BEDSIDE I WAS PRESENT. OCCULT BLOOD POSITIVE. ALL SAFETY MEASURES ARE IN PLACE. WILL CONTINUE TO MONITOR.
[2019-05-29] MEDS: NACL 0.9% 1,000 ML IV SCH (21:29)
[2019-05-29] MEDS: LORazepam 2 MG/ML VIAL IM/IVP PRN (21:50)
[2019-05-29] MEDS: FAMOTIDINE 20 MG TAB PO SCH (21:53)
[2019-05-29] MEDS: DOCUSATE SODIUM 100 MG GELCAP PO SCH (21:53)
[2019-05-29] MEDS: GABAPENTIN 300 MG CAP PO SCH (21:54)
[2019-05-29] MEDS ORDERED: HYDROmorphone 1 MG/ML AMP IVP SCH (22:00)
--- NOTE | 2019-05-29 23:44 | NUR ---
ONE TIME DILAUDID GIVEN FOR ABD PAIN 12/12. VITAL SIGNS ARE WITHIN NORMAL LIMITS. ALL NEEDS MET AT THIS TIME. CALL LIGHT IS WITHIN REACH. WILL CONTINUE TO MONITOR.
[2019-05-30] VITALS: BP 109/48
[2019-05-30 00:27] LABS: BARBITURATE, URINE POS. ng/ml (NEG <=200); BENZODIAZEPINE, URINE POS. ng/mL (NEG <=200); CANNABINOID, URINE NEG. ng/mL (NEG <=50); COCAINE, URINE NEG. ng/mL (NEG <=300); OPIATE, URINE NEG. ng/mL (NEG <=2000); PHENCYCLIDINE SCREEN,URINE NEG. ng/mL (NEG <=25)
--- NOTE | 2019-05-30 02:10 | NUR ---
PATIENT IS SLEEPING IN BED EYES CLOSED. CHEST RISE AND FALL. NO S/S OF DISTRESS. SAFETY MEASURES ARE IN PLACE. CALL LIGHT IS WITHIN REACH. WILL CONTINUE TO MONITOR.
[2019-05-30 04:00] VITALS: BP 113/60
[2019-05-30] MEDS: GABAPENTIN 300 MG CAP PO SCH ×3 (04:39→21:05)
[2019-05-30] MEDS: MORPHINE SULFATE 2 MG/ML SYR IVP PRN ×3 (04:45→19:37)
--- NOTE | 2019-05-30 04:45 | NUR ---
VSS. ADMINISTERED PRN MORPHINE FOR ABD PAIN 01/12. PT TOLERATED WELL. ALL NEEDS MET AT THIS TIME. CALL LIGHT IS WITHIN REACH.
[2019-05-30 06:45] LABS: BASOPHILS % (AUTO) 0.6 % (0.0-2.0); EOSINOPHILS # (AUTO) 0.3 K/uL (0-0.4); HEMATOCRIT 32.2 % (36-48); HEMOGLOBIN 10.2 g/dL (12.0-16.0); LYMPHOCYTES # (AUTO) 1.9 K/uL (2.5-16.5); MEAN CORPUSCULAR HEMOGLOBIN 26 pg (27-31); MEAN CORPUSCULAR HGB CONC 32 g/dL (33-37); MEAN CORPUSCULAR VOLUME 80.4 fL (80-94); MONOCYTES # (AUTO) 0.6 K/uL (0.8-1.0); NEUTROPHILS # (AUTO) 4.3 K/uL (1.8-7.7); NEUTROPHILS % (AUTO) 60.4 % (42.2-75.2); PLATELET COUNT (AUTO) 225 K/uL (140-450); WHITE BLOOD COUNT (AUTO) 7.2 K/uL (4.8-10.8)
[2019-05-30 07:13] LABS: ANION GAP 12.2 (8-16); CARBON DIOXIDE 26.9 mmol/L (21-32); CREATININE 0.7 mg/dL (0.6-1.3); POTASSIUM 4.1 mmol/L (3.5-5.1)
[2019-05-30 07:21] LABS: MAGNESIUM 2.2 mg/dL (1.8-2.4); PHOSPHORUS 3.6 mg/dL (2.5-4.9)
--- NOTE | 2019-05-30 07:22 | NUR ---
GAVE BEDSIDE REPORT TO DAY RN. PT ENDORSED IN STABLE CONDITION.
[2019-05-30 08:00] VITALS: BP 124/56
[2019-05-30] MEDS ORDERED: MORPHINE SULFATE 2 MG/ML SYR IVP PRN (08:35)
--- NOTE | 2019-05-30 09:09 | NUR ---
PATIENT HAS BEEN SCREENED AND CATEGORIZED MODERATE NUTRITION RISK. PATIENT WILL BE SEEN WITHIN 3-5 DAYS OF ADMISSION. 06/01/19-06/03/[address]
[2019-05-30] MEDS: ASCORBIC ACID 500 MG TAB PO SCH (09:30)
[2019-05-30] MEDS: ESCITALOPRAM 20 MG TAB PO SCH (09:33)
[2019-05-30] MEDS: DOCUSATE SODIUM 100 MG GELCAP PO SCH ×2 (09:33→21:05)
[2019-05-30] MEDS: FAMOTIDINE 20 MG TAB PO SCH ×2 (09:34→21:05)
[2019-05-30] MEDS: LORazepam 2 MG/ML VIAL IM/IVP PRN ×3 (09:36→21:03)
[2019-05-30] MEDS: FERROUS SULFATE 325 MG TABEC PO SCH (10:03)
[2019-05-30] MEDS ORDERED: SODIUM FERRIC GLUCONATE 125 MG in NACL 0.9% 100 ML IV SCH (10:30)
--- NOTE | 2019-05-30 11:17 | NUR ---
DC [age] YRS OLD FEMALE PATIENT WAS ADMITTED FROM HOME WITH A DX OF ABDOMINAL PAIN, HEMATOCHEZIA . PT WAS RECENTLY HAD LAPAROSCOPIC HEMICOLECTOMY BY DR MUNSON ON 05 25 19 HAS A HX OF COLON CA , ANXIETY AND GERD. CT ABD/PELVIS POST SURGICAL CHANGES FROM INTERVAL RIGHT HEMICOLECTOMY , PAIN CONTROL WITH PAIN MEDS ,CONTINUE HOME MEDS AND CONSULT WITH DR MUNSON SURGEON. DC PLAN TO GO HOME PER MD'S RECOMMENDATION. CM TO FOLLOW.
[2019-05-30 12:00] VITALS: BP 123/62
[2019-05-30] MEDS: NACL 0.9% 1,000 ML IV SCH (12:14)
[2019-05-30 16:00] VITALS: BP 132/65
--- NOTE | 2019-05-30 19:15 | NUR ---
ENDORSED T0 NIGHTSHIFT. PT IS RESTING IN BED. ABLE TO MAKE NEEDS KNOWN. RESPIRATIONS EVEN AND UNLABORED WITH NO SOB OR RESPIRATORY DISTRESS. PT IS STABLE.
--- NOTE | 2019-05-30 19:20 | NUR ---
RECEIVED BEDSIDE REPORT FROM DAY RN. PT IS AAOX4. MOHAWK SPEAKING. ON ROOM AIR RESPIRATIONS ARE EQUAL AND UNLABORED. LUNG SOUNDS ARE CLEAR. PT S/P LAP HEMICOLECTOMY WITH 4 SURGICAL INCISION CLOSED HEALING CRUSTED OVER PICTURES IN CHART S/P HEMICOLECTOMY ON 05/14. C/C BLACK STOOLS X 3 DAYS AGO AND ABD PAIN. OTHER RITTER SKIN IS INTACT. IV ON R FA 22G IVF PER ORDERS. PT DIET ADVANCED TO MECH SOFT. POC DISCUSSED WITH PT. STOOL OCCULT TO BE COLLECTED. VERBALIZED UNDERSTANDING. WILL CONTINUE TO MONITOR.
--- NOTE | 2019-05-30 19:37 | NUR ---
PT C/C ABD PAIN 10 ADMINISTERED PRN MORPHINE. VSS. SAFETY MEASURES ARE IN PLACE. WILL CONTINUE TO MONITOR.
[2019-05-30 20:00] VITALS: BP 123/64
--- NOTE | 2019-05-30 21:03 | NUR ---
LETICIA MEDICATIONS GIVEN PER ORDERS. PRN ATIVAN ADMINISTERED FOR ANXIETY. PT TOLERATED WELL. ALL SAFETY MEASURES ARE IN PLACE. CALL LIGHT IS WITHIN REACH. WILL CONTINUE TO MONITOR.
--- NOTE | 2019-05-30 22:30 | NUR ---
PATIENT IS SLEEPING COMFORTABLY IN BED. CHEST RISE AND FALL. NO S/S OF DISTRESS NOTED. ALL SAFETY MEASURES ARE IN PLACE. WILL CONTINUE TO MONITOR.
[2019-05-31] VITALS: BP 122/50
--- NOTE | 2019-05-31 00:10 | NUR ---
VITAL SIGNS ARE WITHIN NORMAL LIMITS. NO S/S OF DISTRESS NOTED. SAFETY MEASURES ARE IN PLACE. CALL LIGHT IS WITHIN REACH.
--- NOTE | 2019-05-31 02:15 | NUR ---
PT IS SLEEPING COMFORTABLY IN BED. CHEST RISE AND FALL. CALL LIGHT IS WITHIN REACH.
[2019-05-31 04:00] VITALS: BP 119/53
[2019-05-31] MEDS: NACL 0.9% 1,000 ML IV SCH (04:23)
--- NOTE | 2019-05-31 04:30 | NUR ---
VITAL SIGNS ARE WITHIN NORMAL LIMITS. ALL NEEDS MET AT THIS TIME. CALL LIGHT IS WITHIN REACH. WILL CONTINUE TO MONITOR.
[2019-05-31] MEDS: GABAPENTIN 300 MG CAP PO SCH ×2 (05:03→13:05)
[2019-05-31] MEDS: MORPHINE SULFATE 2 MG/ML SYR IVP PRN ×4 (05:15→15:27)
[2019-05-31 05:54] LABS: BASOPHILS % (AUTO) 0.5 % (0.0-2.0); EOSINOPHILS # (AUTO) 0.3 K/uL (0-0.4); EOSINOPHILS % (AUTO) 3.4 % (0.0-4.0); HEMATOCRIT 34.7 % (36-48); HEMOGLOBIN 10.9 g/dL (12.0-16.0); LYMPHOCYTES # (AUTO) 2.1 K/uL (2.5-16.5); LYMPHOCYTES % (AUTO) 24.2 % (20.5-51.1); MEAN CORPUSCULAR HEMOGLOBIN 25 pg (27-31); MEAN CORPUSCULAR HGB CONC 31 g/dL (33-37); MEAN CORPUSCULAR VOLUME 80.7 fL (80-94); MONOCYTES # (AUTO) 0.6 K/uL (0.8-1.0); MONOCYTES % (AUTO) 6.4 % (1.7-9.3); NEUTROPHILS # (AUTO) 5.8 K/uL (1.8-7.7); NEUTROPHILS % (AUTO) 65.5 % (42.2-75.2); PLATELET COUNT (AUTO) 281 K/uL (140-450); RED BLOOD CELL COUNT(AUTO) 4.31 MIL/uL (4.20-5.40); RED CELL DISTRIBUTION WIDTH 14.7 % (11.6-13.7); WHITE BLOOD COUNT (AUTO) 8.8 K/uL (4.8-10.8)
[2019-05-31 06:07] LABS: ANION GAP 11.9 (8-16); CARBON DIOXIDE 28.1 mmol/L (21-32); CREATININE 0.7 mg/dL (0.6-1.3)
[2019-05-31 06:12] LABS: MAGNESIUM 2.2 mg/dL (1.8-2.4); PHOSPHORUS 3.7 mg/dL (2.5-4.9)
[2019-05-31] MEDS: LORazepam 2 MG/ML VIAL IM/IVP PRN ×3 (06:24→15:27)
--- NOTE | 2019-05-31 06:55 | NUR ---
PATIENT IS RESTING COMFORTABLY IN BED. ALL NEEDS MET. WILL ENDORSE TO DAY RN. PT IS STABLE.
--- NOTE | 2019-05-31 07:10 | NUR ---
RECEIVED BEDSIDE REPORT FROM NIGHTSHIFT NURSE. PT RESTING IN BED UPON ARRIVAL. ABLE TO MAKE NEEDS KNOWN. RESPIRATIONS EVEN AND UNLABORED WITH NO SOB OR RESPIRATORY DISTRESS. SKIN WARM AND DRY TO TOUCH. IV SITE IN RIGHT AC 20G IS CLEAN, DRY, AND INTACT. SAFETY MEASURES IN PLACE. WILL CONTINUE TO MONITOR
[2019-05-31] MEDS ORDERED: HYDR-5122 PO (07:42)
[2019-05-31 08:00] VITALS: BP 126/54
[2019-05-31 08:07] LABS: FOLIC ACID 4.4 ng/mL (>3.0)
[2019-05-31] MEDS: FERROUS SULFATE 325 MG TABEC PO SCH (08:24)
[2019-05-31] MEDS: FAMOTIDINE 20 MG TAB PO SCH (08:24)
[2019-05-31] MEDS: DOCUSATE SODIUM 100 MG GELCAP PO SCH (08:25)
[2019-05-31] MEDS: ASCORBIC ACID 500 MG TAB PO SCH (08:25)
[2019-05-31] MEDS: ESCITALOPRAM 20 MG TAB PO SCH (08:26)
--- NOTE | 2019-05-31 08:26 | NUR ---
ADMINISTERED MEDICATION PRESCRIBED PER MD ORDER. PT TOLERATED WELL. NO COMPLICATIONS AT THIS TIME. MEDICATION EDUCATION PERFORMED. PT VERBALIZED UNDERSTANDING AND COULD TEACH BACK. SAFETY MEASURES IN PLACE. WILL CONTINUE TO MONITOR
--- NOTE | 2019-05-31 10:02 | NUR ---
PT ON THE PHONE WITH FAMILY. ABLE TO MAKE NEEDS KNOWN. NO COMPLICATIONS AT THIS TIME. RESPIRATIONS EVEN AND UNLABORED WITH NO SOB OR RESPIRATORY DISTRESS. SAFETY MEASURES IN PLACE. WILL CONTINUE TO MONITOR.
[2019-05-31 12:00] VITALS: BP 128/49
--- NOTE | 2019-05-31 12:18 | NUR ---
PT CALLED AND COMPLAINED OF PAIN. PRN PAIN MEDICATION GIVEN PRESCRIBED PER MD ORDER. PT TOLERATED WELL. MEDICATION EDUCATION PERFORMED. PT VERBALIZED UNDERSTANDING AND COULD TEACH BACK. SAFETY MEASURES IN PLACE. WILL CONTINUE TO MONITOR.
--- NOTE | 2019-05-31 13:05 | NUR ---
ADMINISTERED MEDICATION PRESCRIBED PER MD ORDER. PT TOLERATED WELL. MEDICATION EDUCATION PERFORMED. PT TOLERATED WELL. ABLE TO VERBALIZE UNDERSTANDING AND TEACH BACK. SAFETY MEASURES IN PLACE
[2019-05-31 14:15] VITALS: BP 128/49
--- NOTE | 2019-05-31 14:15 | NUR ---
PT WATCHING TV ON HER PHONE. RESPIRATIONS EVEN AND UNLABORED WITH NO SOB OR RESPIRATORY DISTRESS. ABLE TO MAKE NEEDS KNOWN. NO COMPLICATIONS OR CONCERNS AT THIS TIME. PT STATED THAT HER FAMILY WILL BE HERE IN AN HOUR TO TAKE HER HOME. SAFETY MEASURES IN PLACE. WILL CONTINUE TO MONITOR.
--- NOTE | 2019-05-31 16:00 | NUR ---
PT IS RESTING IN BED WITH FAMILY AT BEDSIDE. RESPIRATIONS EVEN AND UNLABORED WITH NO SOB OR RESPIRATORY DISTRESS, ABLE TO MAKE NEEDS KNOWN. SKIN WARM AND DRY TO TOUCH. WENT OVER DISCHARGE INSTRUCTIONS AND HAD PT SIGN APPROPRIATE FORMS. EDUCATED PT TO VISIT ED WITH ANY SIGNS AND SYMPTOMS OF DISTRESS. PT VERBALIZED UNDERSTANDING AND COULD TEACH BACK. PT ALREADY HAD PREVIOUS FLU AND PNA VACCINE. ID BAND, ALLERGY BAND, AND INTACT IV CANNULA REMOVED. WOUND PICTURE GATHERED AT DISCHARGE. NO COMPLICATIONS AT THIS TIME. PATIENT ESCORTED WITH FAMILY BY HER SIDE. PT SAFELY TRANSFERRED INTO PRIVATE VEHICLE. PATIENT IS STABLE.
== END 2019-05-31 16:00 | disposition home or self-care (01) | DRG 253 ==
LOC: MED 13:07 → MTU 19:03
PROVIDERS: ADMIT General Practice; ATTEND General Practice
DX: K92.2 Gastrointestinal hemorrhage, unspecified (principal); C18.9 Malignant neoplasm of colon, unspecified; E44.0 Moderate protein-calorie malnutrition; G62.9 Polyneuropathy, unspecified; D50.9 Iron deficiency anemia, unspecified; E66.9 Obesity, unspecified; N39.0 Urinary tract infection, site not specified; E78.5 Hyperlipidemia, unspecified; Z68.37 Body mass index [BMI] 37.0-37.9, adult; F41.9 Anxiety disorder, unspecified; Z80.0 Family history of malignant neoplasm of digestive organs; Z85.038 Personal history of other malignant neoplasm of large intestine; K21.9 Gastro-esophageal reflux disease without esophagitis; Z88.0 Allergy status to penicillin; Z88.8 Allergy status to other drugs, medicaments and biological substances; Z80.3 Family history of malignant neoplasm of breast; Z82.3 Family history of stroke
CPT/HCPCS: 36415; 80048; 80053; 80305; 81001; 82150; 82272; 82607; 82728; 82746; 83036; 83540; 83690; 83735; 84100; 84134; 84443; 85025; 85045; 85610; 85730; 86886; 86900; 86901; 87081; 87086; 93005; 96361; 96374; 96375; 96376; 99285; C9113; J0696; J1170; J2060; J2270; J2405; J2550; J2765; J2916; J3490; J7030; J7060; Q9967

== ENCOUNTER 2019-06-22 17:51 | Emergency (ER) | payer MEDICAID ==
[~2019-06-22] VITALS: Ht 165.1 cm; Wt 101.2 kg
[~2019-06-22 17:51] MED LIST changes: +HYDR-5122 PO
[2019-06-22 18:10] VITALS: BP 123/54
--- NOTE | 2019-06-22 18:12 | NUR ---
URINE CUP HANDED TO PT FOR SAMPLE
--- NOTE | 2019-06-22 18:19 | NUR ---
PT AMBULATED TO ER BED 12
--- NOTE | 2019-06-22 18:22 | NUR ---
49 Y/O F C/O RUQ PAIN X2 DAYS 03/14. PT STATES SHE HAD COLON REMOVAL SURGERY X 1 MONTH AGO FOR CANCER. SHE HAS HAD PAIN OFF AND AN S/P SURGERY. PT STATES SHE HAS DIAHREA X1 MONTH AFTER SURGERY. ABDOMEN IS ROUND, SOFT AND PAIN TO TOUCH RUQ. PT DENIES FEVER. PT POSITIONED FOR COMFORT, BED LOWERED, SIDE RAIL X1 IN PLACE. FAMILY MEMBER AT BEDSIDE. ALLERGIES: PENICILLIN, IBUPROFEN
--- NOTE | 2019-06-22 19:11 | NUR ---
REPORT GIVEN TO INDER WATERS FOR CHANGE OF SHIFT
[2019-06-22] MEDS ORDERED: ONDANSETRON 4 MG/2 ML VIAL IVP ONE (20:25)
[2019-06-22] MEDS ORDERED: MORPHINE SULFATE 4 MG/ML SYR IVP ONE (20:25)
[2019-06-22] MEDS ORDERED: NACL 0.9% 1,000 ML IV ONE (20:25)
[2019-06-22 21:35] LABS: BASOPHILS % (AUTO) 0.4 % (0.0-2.0); EOSINOPHILS # (AUTO) 0.2 K/uL (0-0.4); HEMOGLOBIN 10.7 g/dL (12.0-16.0); LYMPHOCYTES # (AUTO) 2.3 K/uL (2.5-16.5); LYMPHOCYTES % (AUTO) 23.4 % (20.5-51.1); MEAN CORPUSCULAR HEMOGLOBIN 26 pg (27-31); MEAN CORPUSCULAR HGB CONC 32 g/dL (33-37); MEAN CORPUSCULAR VOLUME 80.8 fL (80-94); MONOCYTES # (AUTO) 0.6 K/uL (0.8-1.0); MONOCYTES % (AUTO) 6.4 % (1.7-9.3); NEUTROPHILS # (AUTO) 6.6 K/uL (1.8-7.7); NEUTROPHILS % (AUTO) 67.8 % (42.2-75.2); PLATELET COUNT (AUTO) 193 K/uL (140-450); RED BLOOD CELL COUNT(AUTO) 4.08 MIL/uL (4.20-5.40); RED CELL DISTRIBUTION WIDTH 15.9 % (11.6-13.7); WHITE BLOOD COUNT (AUTO) 9.7 K/uL (4.8-10.8)
[2019-06-22 21:53] LABS: ANION GAP 12.9 (8-16); CARBON DIOXIDE 28.1 mmol/L (21-32); CREATININE 0.6 mg/dL (0.6-1.3)
[2019-06-22 21:59] LABS: ALBUMIN 3.1 g/dL (3.4-5.0); TOTAL BILIRUBIN 0.2 mg/dL (0.0-1.0)
[2019-06-22 22:34] LABS: APPEARANCE,URINE CLEAR (CLEAR); BILIRUBIN,URINE NEGATIVE (NEGATIVE); BLOOD, URINE 1+ (NEGATIVE); COLOR,URINE YELLOW (YELLOW); LEUKOCYTE ESTERASE ,URINE NEGATIVE (NEGATIVE); NITRITE, URINE NEGATIVE (NEGATIVE); UGLUCOSE NEGATIVE (NEGATIVE)
[2019-06-22 22:48] LABS: RBC,URINE 0-5 /HPF (0-5); WBC,URINE 0-5 /HPF (0-5)
[2019-06-23] MEDS ORDERED: MORPHINE SULFATE 4 MG/ML SYR IVP ONE
[2019-06-23 00:40] VITALS: BP 123/54
--- NOTE | 2019-06-23 00:40 | NUR ---
Patient discharged with v/s stable. Written and verbal after care instructions given and explained BY DR. ZUNIGA. Patient alert, oriented and verbalized understanding of instructions. Ambulatory with steady gait. All questions addressed prior to discharge. ID band removed. Patient advised to follow up with PMD.
--- NOTE | 2019-06-24 10:53 | NUR ---
Late entry. Confirmed with RN that 0.9 NS IV completed at 2430
== END 2019-06-23 00:40 | disposition home or self-care (01) ==
LOC: MED 17:51
DX: K76.0 Fatty (change of) liver, not elsewhere classified (principal); R10.11 Right upper quadrant pain; Z85.9 Personal history of malignant neoplasm, unspecified; Z90.49 Acquired absence of other specified parts of digestive tract; Z79.899 Other long term (current) drug therapy; Z88.6 Allergy status to analgesic agent; Z88.0 Allergy status to penicillin
CPT/HCPCS: 36415; 76705; 80053; 81001; 82150; 83690; 85025; 96361; 96374; 96375; 96376; 99284; J2270; J2405; J7030; Q0092

== ENCOUNTER 2019-07-06 11:43 | Emergency (ER) | payer MEDICAID ==
[~2019-07-06] VITALS: Ht 165.1 cm; Wt 99.3 kg
[2019-07-06 11:51] VITALS: BP 122/70
--- NOTE | 2019-07-06 12:01 | NUR ---
C/O LUQ SHARP STABBING NON RADIATING PAIN X YESTERDAY ADMITS TO MILD TO MODERATE NAUSEA--- ADDS HAD TUMOR RESECTED FROM COLON 2 MONTHS AGO; WILL START ON CHEMO SOON
--- NOTE | 2019-07-06 12:27 | NUR ---
PT WENT AND RETURNED FROM RADIOLOGY VIA WC--
[2019-07-06 12:43] LABS: BILIRUBIN,URINE NEGATIVE (NEGATIVE); BLOOD, URINE NEGATIVE (NEGATIVE); COLOR,URINE YELLOW (YELLOW); LEUKOCYTE ESTERASE ,URINE TRACE (NEGATIVE); NITRITE, URINE NEGATIVE (NEGATIVE); UGLUCOSE NEGATIVE (NEGATIVE)
--- NOTE | 2019-07-06 12:45 | NUR ---
PT RESTING IN BED, SIDE RAIL X1
[2019-07-06 13:06] LABS: APPEARANCE,URINE SLIGHTLY HAZY (CLEAR)
[2019-07-06 13:07] LABS: RBC,URINE NONE SEEN /HPF (0-5); WBC,URINE 0-5 /HPF (0-5)
[2019-07-06 13:23] VITALS: BP 128/68
== END 2019-07-06 13:23 | disposition home or self-care (01) ==
LOC: MED 11:43
DX: K29.70 Gastritis, unspecified, without bleeding (principal); Z98.890 Other specified postprocedural states; Z85.038 Personal history of other malignant neoplasm of large intestine; Z79.899 Other long term (current) drug therapy
CPT/HCPCS: 74018; 81001; 99284

== ENCOUNTER 2019-12-15 12:48 | Emergency (ER) | payer MEDICAID ==
[~2019-12-15] VITALS: Ht 165.1 cm; Wt 104.3 kg
[2019-12-15 12:51] VITALS: BP 127/47
--- NOTE | 2019-12-15 13:03 | NUR ---
EKG AT TRIAGE.
--- NOTE | 2019-12-15 13:05 | NUR ---
WAIT AT LOBBY.
--- NOTE | 2019-12-15 13:25 | NUR ---
C/O NAUSEA, LEFT CHEST PAIN RADIATING TO LEFT SHOULDER X 2 DAYS. MED HX: ABDOMINAL SURGERY
--- NOTE | 2019-12-15 13:49 | NUR ---
PT AMB TO BED 5.
[2019-12-15 14:37] LABS: BASOPHILS # (AUTO) 0.1 K/uL (0.00-0.22); BASOPHILS % (AUTO) 0.7 % (0.0-2.0); EOSINOPHILS # (AUTO) 0.3 K/uL (0-0.4); HEMATOCRIT 35.4 % (36-48); HEMOGLOBIN 11.5 g/dL (12.0-16.0); LYMPHOCYTES # (AUTO) 1.7 K/uL (2.5-16.5); LYMPHOCYTES % (AUTO) 16.9 % (20.5-51.1); MEAN CORPUSCULAR HEMOGLOBIN 27 pg (27-31); MEAN CORPUSCULAR HGB CONC 32 g/dL (33-37); MEAN CORPUSCULAR VOLUME 81.7 fL (80-94); MONOCYTES # (AUTO) 0.6 K/uL (0.8-1.0); MONOCYTES % (AUTO) 5.9 % (1.7-9.3); NEUTROPHILS # (AUTO) 7.3 K/uL (1.8-7.7); NEUTROPHILS % (AUTO) 73.5 % (42.2-75.2); PLATELET COUNT (AUTO) 169 K/uL (140-450); RED BLOOD CELL COUNT(AUTO) 4.33 MIL/uL (4.20-5.40); RED CELL DISTRIBUTION WIDTH 13.6 % (11.6-13.7)
--- NOTE | 2019-12-15 14:46 | NUR ---
C/O NAUSEA, LEFT CHEST PAIN RADIATING TO LEFT SHOULDER X 2 DAYS.PT AOX 4 , AFIBRILE , AMBULATORY WITH STEADY GAIT. , SCE, [facility] MED HX: ABDOMINAL SURGERY
[2019-12-15 15:05] LABS: CREATINE KINASE MB 0.3 ng/mL (0-3.6)
[2019-12-15 15:27] LABS: ALBUMIN 3.5 g/dL (3.4-5.0); ANION GAP 14.9 (8-16); CARBON DIOXIDE 27.2 mmol/L (21-32); CREATININE 0.7 mg/dL (0.6-1.3); POTASSIUM 4.1 mmol/L (3.5-5.1); TOTAL BILIRUBIN 0.4 mg/dL (0.0-1.0)
[2019-12-15 16:20] VITALS: BP 124/52
--- NOTE | 2019-12-15 16:21 | NUR ---
Patient discharged with v/s stable. Written and verbal after care instructions given and explained regarding nonspecific chest pain. Patient alert, oriented and verbalized understanding of instructions. Ambulatory with steady gait. All questions addressed prior to discharge. ID band removed. Patient advised to follow up with PMD. Rx of precogesic given. Patient educated on indication of medication including possible reaction and side effects. Opportunity to ask questions provided and answered.
== END 2019-12-15 16:21 | disposition home or self-care (01) ==
LOC: MED 12:48
DX: R07.89 Other chest pain (principal); R10.10 Upper abdominal pain, unspecified; Z85.038 Personal history of other malignant neoplasm of large intestine; Z85.028 Personal history of other malignant neoplasm of stomach; Z79.899 Other long term (current) drug therapy
CPT/HCPCS: 36415; 71045; 80053; 82550; 82553; 83690; 84484; 85025; 93005; 99285